=== PATIENT | male | born 1945 | race Caucasian/White ===

== ENCOUNTER → 2017-04-15 | Day surgery (SDC) | payer OTHER ==
--- NOTE | 2017-04-02 10:09 | Diagnostic Imaging Report ---
PROCEDURE:CHEST 2 VIEWS TECHNIQUE:PA and lateral chest INDICATION:Preoperative evaluation for hip hardware removal. COMPARISON:Patients [facility] [place], , CHEST 2 VIEWS, 11/07/2016, 8:49. FINDINGS: The right lung is mildly hyperinflated. Left lower lobe and lingular segmental atelectasis with interstitial thickening consistent with scar. Adjacent small left pleural effusion with or without accompanying pleural thickening. Left upper lobe is clear. Normal heart size and mediastinal contour. Intact skeleton. CONCLUSION: Left lower lobe volume loss with accompanying interstitial scar and small left pleural effusion or pleural thickening. Findings are similar to October 2016. Dictated by: Micah Conde M.D. on 04/02/2017 at 10:17 Electronically approved by: Micah Conde M.D. on 04/02/2017 at 10:17
[~2017-04-15] MED LIST: ALPRAZOLAM0.25 MG PO; AMARYL4 MG PO; BUPIVACAINE HCL 0.5% INJ 30 ML VIAL INJ ONE; CATAPRES0.3 MG TD; CEFAZOLIN SOD 2 GM/D5W 50ML 50 ML IV ONE; CLONIDINE HCL0.1 MG PO; CLONIDINE HCL0.3 MG PO; CRESTOR40 MG; FENTANYL CITRATE/PF 100MCG/2 ML INJ ONE; FINASTERIDE5 MG PO; FLAGYL250 MG PO; FUROSEMIDE40 MG PO; GABAPENTIN300 MG PO; GLUCOPHAGE XR750 MG; HYDRALAZINE HCL25 MG PO; LAMOTRIGINE150 MG PO; LASIX40 MG PO; LEVEMIR100 UNIT/1 SQ; LEVOTHYROXINE50 MCG PO; LIDOCAINE HCL 2% LOCAL INJ 5 ML SDV VIAL INJ ONE; LITE COAT ASPI325 MG PO; LITHOBID300 MG; METOLAZONE5 MG PO; METOPROLOL TART50 MG PO; METRONIDAZOLE500 MG PO; MINOXIDIL2.5 MG PO; NEXIUM40 MG PO; PLAVIX75 MG PO; PROPOFOL IV EMULSION 10 MG/ML 20 ML VIAL ONE; SEVOFLURANE INHAL SOLN 250 ML PEN BTL ONE; SODIUM CHLORIDE 0.9% 500ML 500 ML ONE; TAMSULOSIN HCL0.4 MG PO; TERAZOSIN HCL5 MG PO; VANCOCIN HCL250 MG PO
[2017-04-15 06:49] LABS: BASOPHILS % 0.6 % (0.0-1.0); EOSINOPHILS # (AUTO) 0.1 (0.0-0.4); EOSINOPHILS % 2.8 % (0.0-6.0); HEMATOCRIT 38.2 % (38.2-49.6); HEMOGLOBIN 12.3 g/dL (14.0-18.0); LYMPHOCYTES # (AUTO) 0.9 (1.0-3.2); LYMPHOCYTES % 18.1 % (18.0-39.1); MEAN CORPUSCULAR HEMOGLOBIN 31.9 pg (28-32); MEAN CORPUSCULAR HGB CONC 32.2 g/dL (31-35); MEAN CORPUSCULAR VOLUME 99.2 fL (81-99); MONOCYTES # (AUTO) 0.7 (0.2-0.8); MONOCYTES % 14.3 % (4.4-11.3); NEUTROPHILS % 63.8 % (38.7-80.0); PLATELET COUNT 142 x10e3/uL (140-360); RED BLOOD COUNT 3.85 x10e6/uL (4.3-5.7); RED CELL DISTRIBUTION WIDTH 14.8 % (11.7-14.4)
[2017-04-15 07:01] LABS: ANION GAP 14.1 mmol/L (8-16); CALCIUM 9.1 mg/dL (8.4-10.2); CREATININE, SERUM 4.39 mg/dL (0.72-1.25); POTASSIUM 4.1 mmol/L (3.5-5.1)
--- NOTE | 2017-04-16 08:40 | Operative Report ---
DATE OF PROCEDURE: April 15, 2017 PREOPERATIVE DIAGNOSIS: Symptomatic hardware, right hip. POSTOPERATIVE DIAGNOSIS: Symptomatic hardware, right hip. OPERATION/PROCEDURE PERFORMED: Patient underwent removal of the symptomatic hardware from the right hip. BAR HOST: None. ANESTHESIA: General endotracheal intubation anesthesia. IV FLUIDS: Per the anesthesia record. BRIEF DESCRIPTION OF OPERATIVE PROCEDURE: Mr. Myers was taken to the operating room and placed in the supine position on the operating table. Following induction of general anesthesia, as well as endotracheal intubation, the patient's right lower extremity was examined under anesthesia. He was found to have an incision on the lateral aspect of his hip. His right lower extremity was placed in a well-padded longitudinal traction, and the left lower extremity was placed in a well-padded lithotomy position. Fluoroscopic evaluation of the right hip joint demonstrated retained hardware from a previous percutaneous screw fixation of a femoral neck fracture. The patient experienced considerable compression during the healing phase. Each of the screws was protruding significantly from the lateral aspect of the femur. This had resulted in chronic persistent lateral hip discomfort during the patient's daily activities. The patient's thigh and leg were prepped and draped in a standard surgical fashion. An incision was created along the lateral aspect of the thigh through the previous surgical incision. This incision was carried through skin only. Blunt dissection was used to deepen the incision, and the screws were easily identified in the soft tissues adjacent to the lateral aspect of the femur. Each screw and washer were isolated and removed without difficulty. Under fluoroscopic evaluation, the patient's hip was placed through a range of motion, and the patient's head and neck moved in concert. There was no evidence of a nonunion. The patient's wound was copiously irrigated. The wound was closed in a multilayer fashion. Sterile dressings were applied. The patient was awakened and taken to the postanesthesia care unit in stable condition. Job#: [id number] AMPARO
== END | disposition home or self-care (01) ==
LOC: OR 05:24
PROVIDERS: ATTEND Specialist
DX: Z45.89 Encounter for adjustment and management of other implanted devices (principal); G47.33 Obstructive sleep apnea (adult) (pediatric); E11.22 Type 2 diabetes mellitus with diabetic chronic kidney disease; I12.0 Hypertensive chronic kidney disease with stage 5 chronic kidney disease or end stage renal disease; N18.6 End stage renal disease; I69.398 Other sequelae of cerebral infarction; R53.1 Weakness; K21.9 Gastro-esophageal reflux disease without esophagitis; Z01.810 Encounter for preprocedural cardiovascular examination; Z01.818 Encounter for other preprocedural examination; Z79.82 Long term (current) use of aspirin; Z99.2 Dependence on renal dialysis
CPT/HCPCS: 20680; 36415; 71046; 76001; 80048; 85025; 93005; J2001; J7040

== ENCOUNTER 2017-07-21 08:10 | Emergency (ER) | payer OTHER ==
[~2017-07-21] VITALS: Ht 172.7 cm; Wt 70.3 kg
[~2017-07-21 08:10] MED LIST changes: -BUPIVACAINE HCL 0.5% INJ 30 ML VIAL INJ ONE; -CEFAZOLIN SOD 2 GM/D5W 50ML 50 ML IV ONE; -FENTANYL CITRATE/PF 100MCG/2 ML INJ ONE; -LIDOCAINE HCL 2% LOCAL INJ 5 ML SDV VIAL INJ ONE; -PROPOFOL IV EMULSION 10 MG/ML 20 ML VIAL ONE; -SEVOFLURANE INHAL SOLN 250 ML PEN BTL ONE; -SODIUM CHLORIDE 0.9% 500ML 500 ML ONE
--- OUTSIDE RECORDS SUMMARY | 2017-07-21 08:14 | XMS REPORT ---
Author Author [facility] [place] Address Unknown Phone Unavailable Care Team Providers Care [employer]er Name Role Phone LUIS WRAY Unavailable Unavailable EDWIN AMBROCIO Unavailable Unavailable Problems This patient has no known problems. Allergies, Adverse Reactions, Alerts This patient has no known allergies or adverse reactions. Medications This patient has no known medications. Results Test Description Test Time Test Comments Text Results Atomic Results Result Comments CHEST 2 VIEWS [place] [address] Patient Name: NICKI DIXON MR #: [id number] : 1945 Age/Sex: 72/M Req # : [id number] Adm Physician: Ordered by: LUIS WRAY MD Report #: [id number] Location: OR Room/Bed: Procedure: [id number] DX/CHEST 2 VIEWS Exam Date: 04/02/17 Exam Time : 0940 REPORT STATUS: Signed PROCEDURE: CHEST 2 VIEWS TECHNIQUE: PA and lateral chest INDICATION: Preoperative evaluation for hip hardware removal. COMPARISON: [facility], , CHEST 2 VIEWS, 11/07/2016, 8:49. FINDINGS: The right lung is mildly hyperinflated. Left lower lobe and lingular segmental atelectasis with interstitial thickening consistent with scar. Adjacent small left pleural effusion with or without accompanying pleural thickening. Left upper lobe is clear. Normal heart size and mediastinal contour. Intact skeleton. CONCLUSION: Left lower lobe volume loss with accompanying interstitial scar and small left pleural effusion or pleural thickening. Findings are similar to October 2016. Dictated by: Claudine Conde M.D. on 04/02/2017 at 10:17 Electronically approved by: Claudine Conde M.D. on 04/02/2017 at 10:17 Dictated By: CLAUDINE CONDE MD [id number] Transcribed By: TROY on 04/02/17 1017 COPY TO: LUIS WRAY MD CHEST SINGLE (PORTABLE) [place] [address] Patient Name: NICKI DIXON MR #: [id number] : 1945 Age/Sex: 71/M Req #: [id number] Adm Physician: Ordered by: EDWIN AMBROCIO MD Report #: [id number] Location: ER Room/Bed: Procedure: [id number] DX/CHEST SINGLE (PORTABLE) Exam Date: 11/17/16 Exam Time: 1030 REPORT STATUS: Signed PROCEDURE: A single AP view of the chest. COMPARISON: [facility], DX, CHEST 2 VIEWS, 11/07/2016, 8:49. INDICATIONS: DIALYSIS PATIENT FINDINGS: See impression. IMPRESSION: 1. central pulmonary venous congestion, bilateral interstitial edema, bilateral pleural effusions and associated compressive atelectasis. Findings likely represent fluid overload. 2. Mild prominence of the cardiac silhouette. 3. No acute bony abnormalities. 4. Preliminary report provided by Dr. Simmons November 17, 2016 at 1118 hour Caitlin Simmons M.D. Dictated by: Caitlin Simmons M.D. on 11/19/2016 at 15:55 Electronically approved by: Caitlin Simmons M.D. on 11/19/2016 at 15:55 Dictated By: CAITLIN SIMMONS MD 54 Transcribed By: TROY on 11/19/161554 COPY TO: EDWIN AMBROCIO MD CHEST 2 VIEWS [place] [address] Patient Name: NICKI DIXON MR #: [id number] : 1945 Age/Sex: 71/M Req # : [id number] Adm Physician: Ordered by: LUIS WRAY MD Report #: [id number] Location: OR Room/Bed: Procedure: [id number] DX/CHEST 2 VIEWS Exam Date: 11/07/16 Exam Time : 0845 REPORT STATUS: Signed PROCEDURE: X-RAY CHEST, TWO VIEWS COMPARISON: [facility], DX, CHEST SINGLE (NOT PORTABLE), 2015, 10:08. INDICATIONS: PREOPERATIVE CHEST XRAY FOR RIGHT KNEE SCOPE FINDINGS: LUNGS: No consolidations or edema. Chronic changes in the left lung base. PLEURA: Small left pleural effusion versus scarring. HEART T MEDIASTINUM: The heart is within normal size- limits. BONES T SOFT TISSUES: No acute findings. CONCLUSION : No acute thoracic abnormality. Edinson Meeks D.O. Dictated by: Edinson Meeks D.O. on 11/07/2016 at 9:45 Electronically approved by: Edinson Meeks D.O. on 11/07/2016 at 9:45 Dictated By: EDINSON MEEKS DO 4 COPY TO: LUIS WRAY MD
[2017-07-21] MEDS ORDERED: MINOXIDIL 2.5 MG TAB PO ONE (08:45)
[2017-07-21 09:30] LABS: BASOPHILS % 0.5 % (0.0-1.0); EOSINOPHILS # (AUTO) 0.1 (0.0-0.4); EOSINOPHILS % 1.8 % (0.0-6.0); HEMATOCRIT 39.6 % (38.2-49.6); HEMOGLOBIN 13.2 g/dL (14.0-18.0); LYMPHOCYTES # (AUTO) 0.9 (1.0-3.2); LYMPHOCYTES % 15.6 % (18.0-39.1); MEAN CORPUSCULAR HEMOGLOBIN 32.1 pg (28-32); MEAN CORPUSCULAR HGB CONC 33.3 g/dL (31-35); MEAN CORPUSCULAR VOLUME 96.4 fL (81-99); MONOCYTES # (AUTO) 0.6 (0.2-0.8); NEUTROPHILS # (AUTO) 3.9 (2.1-6.9); NEUTROPHILS % 71.6 % (38.7-80.0); PLATELET COUNT 140 x10e3/uL (140-360); RED BLOOD COUNT 4.11 x10e6/uL (4.3-5.7); RED CELL DISTRIBUTION WIDTH 13.2 % (11.7-14.4)
[2017-07-21 09:34] LABS: CALCIUM IONIZED 1.1 mmol/L (1.09-1.30)
[2017-07-21 09:46] LABS: ALBUMIN 3.8 g/dL (3.5-5.0); ALBUMIN/GLOBULIN RATIO 0.8 (0.8-2.0); ANION GAP 18.9 mmol/L (8-16); CALCIUM 9.8 mg/dL (8.4-10.2); CREATININE, SERUM 6.14 mg/dL (0.72-1.25); MAGNESIUM 2.2 MG/DL (1.3-2.1); PHOSPHORUS 5.3 MG/DL (2.3-4.7)
[2017-07-21 09:48] LABS: POTASSIUM 5.9 mmol/L (3.5-5.1)
[2017-07-21] MEDS ORDERED: SODIUM BICARBONATE 8.4% 50 ML VIAL IV STA (10:39)
[2017-07-21] MEDS ORDERED: SOD POLYSTYRENE SULFONATE SUSP 15 GM/60 ML BTL PO ONE (10:45)
[2017-07-21] MEDS ORDERED: CALCIUM GLUCONATE 10% INJ 9.3 MEQ in SODIUM CHLORIDE 0.9% 100 ML 100 ML IV ONE (10:45)
[2017-07-21] MEDS ORDERED: SODIUM CHLORIDE 0.9% 500ML 500 ML IV ONE (10:45)
[2017-07-21] MEDS ORDERED: CALCIUM GLUCONATE 10% INJ 0.465 MEQ/ML VIAL ONE (10:58)
[2017-07-21] MEDS ORDERED: SODIUM BICARBONATE 8.4% INJ 50 ML SYR IV NR (11:00)
--- NOTE | 2017-07-21 12:44 | Diagnostic Imaging Report ---
PROCEDURE:CHEST 2 VIEWS TECHNIQUE:PA and lateral chest INDICATION:Muscle cramping COMPARISON:Patients [facility], , CHEST 2 VIEWS, 04/02/2017, 9:51. FINDINGS: The right lung is mildly hyperinflated. Left lower lobe and lingular segmental atelectasis with interstitial thickening consistent with scar. Adjacent small left pleural effusion with or without accompanying pleural thickening. Left upper lobe is clear. Normal heart size and mediastinal contour. Intact skeleton. CONCLUSION: Left lower lobe volume loss with accompanying interstitial scar and small left pleural effusion or pleural thickening. Findings are unchanged from March 2017. Dictated by: Micah Conde M.D. on 07/21/2017 at 12:46 Electronically approved by: Micah Conde M.D. on 07/21/2017 at 12:46
[2017-07-21 14:17] VITALS: BP 157/74
[2017-07-21] MEDS ORDERED: CALCIUM ACETATE 667 MG GELCAP PO ONE (15:00)
== END 2017-07-21 14:32 | disposition home or self-care (01) ==
LOC: ER 08:10
DX: I12.0 Hypertensive chronic kidney disease with stage 5 chronic kidney disease or end stage renal disease (principal); R53.1 Weakness; M79.1 Myalgia; N18.6 End stage renal disease; Z99.2 Dependence on renal dialysis
CPT/HCPCS: 36415; 71046; 80053; 82330; 83735; 84100; 85025; 99284; J0610; J7040

== ENCOUNTER 2017-10-29 15:24 | Inpatient (IN) | payer OTHER ==
[~2017-10-29] VITALS: Ht 172.7 cm; Wt 83.5 kg
[2017-10-29] MEDS ORDERED: ONDANSETRON HCL INJ 2 MG/ML VIAL IM STA (15:32)
[2017-10-29] MEDS ORDERED: RENVELA800 MG PO (15:52)
[2017-10-29] MEDS ORDERED: ASPIR 8181 MG PO (15:52)
[2017-10-29 15:55] LABS: BASOPHILS # (AUTO) 0.1 (0.0-0.1); BASOPHILS % 0.6 % (0.0-1.0); EOSINOPHILS # (AUTO) 0.1 (0.0-0.4); EOSINOPHILS % 1.4 % (0.0-6.0); HEMATOCRIT 39.4 % (38.2-49.6); HEMOGLOBIN 13.3 g/dL (14.0-18.0); LYMPHOCYTES # (AUTO) 0.9 (1.0-3.2); LYMPHOCYTES % 10.3 % (18.0-39.1); MEAN CORPUSCULAR HEMOGLOBIN 33.3 pg (28-32); MEAN CORPUSCULAR HGB CONC 33.8 g/dL (31-35); MEAN CORPUSCULAR VOLUME 98.7 fL (81-99); MONOCYTES # (AUTO) 0.6 (0.2-0.8); MONOCYTES % 7.3 % (4.4-11.3); NEUTROPHILS # (AUTO) 6.8 (2.1-6.9); NEUTROPHILS % 78.7 % (38.7-80.0); PLATELET COUNT 175 x10e3/uL (140-360); RED BLOOD COUNT 3.99 x10e6/uL (4.3-5.7); RED CELL DISTRIBUTION WIDTH 13.2 % (11.7-14.4)
[2017-10-29 15:59] LABS: INR 0.95; PARTIAL THROMBOPLASTIN TIME 25.9 seconds (23.8-35.5); PROTHROMBIN TIME 11.9 seconds (11.9-14.5)
[2017-10-29] MEDS: HYDROMORPHONE 1MG/1ML INJ IV PRN ×2 (16:03→22:25)
[2017-10-29 16:08] LABS: ALBUMIN 4.2 g/dL (3.5-5.0); ANION GAP 20.4 mmol/L (8-16); CALCIUM 9.7 mg/dL (8.4-10.2); CREATININE, SERUM 5.7 mg/dL (0.72-1.25); POTASSIUM 4.4 mmol/L (3.5-5.1)
--- NOTE | 2017-10-29 16:28 | Diagnostic Imaging Report ---
PROCEDURE: A single AP view of the chest. COMPARISON: [facility], DX, CHEST 2 VIEWS, 07/21/2017, 13:27. INDICATIONS: PREOP FOR BROKEN RIGHT HIP FINDINGS: Lines/tubes: None. Lungs: The lungs are well inflated. Linear and patchy opacities in the left lower lung consistent with scarring and pleural thickening are relatively stable since the prior exam. Associated compressive atelectasis. Pleura: Probable small left pleural effusion. Heart and mediastinum: Cardiac silhouette is unremarkable. Pulmonary vasculature is normal. Bones: No acute bony abnormality. IMPRESSION: 1. stable findings in the left lower lung likely related to scarring and pleural thickening. Small pleural effusion and likely associated compressive atelectasis. Flavio Simmons M.D. Dictated by: Flavio Simmons M.D. on 10/29/2017 at 16:33 Electronically approved by: Flavio Simmons M.D. on 10/29/2017 at 16:33
[2017-10-29] MEDS ORDERED: DEXTROSE 50% SYRINGE 50 ML IV PRN (17:15)
[2017-10-29] MEDS ORDERED: HYDROMORPHONE 1MG/1ML INJ IV STA (17:17)
--- NOTE | 2017-10-29 18:16 | Consultation ---
DATE OF CONSULTATION: October 29, 2017 HISTORY OF PRESENT ILLNESS: This is a 72-year-old white gentleman, well known to me, who was recently admitted at [facility] with severe pain involving the right outer aspect of the legs, particularly thigh are, very tender to touch. Initial impression was probable entrapment of lateral cutaneous nerve. He had already seen orthopedics earlier before coming to the hospital, This time he has been sent by Dr. Carrillo for fracture of his hip and possibility of surgery and hip replacement. He is currently awake, alert and lying supine in no apparent distress. He is on Thursday, Thursday and Thursday dialysis schedule. His labs show white count 8.6. Hemoglobin 13.3. Potassium 4.4. Creatinine 5.7. BNP 730. SOCIAL HISTORY: Patient does not smoke or drink. FAMILY HISTORY: Significant for hypertension. ALLERGIES: LOSARTAN. Workup here included chest x-ray shows stable findings of the left lower lung field related to scarring and pleural thickening. CURRENT MEDICATIONS: His home medications have been started as far as Xanax 0.25 mg p.o. t.i.d., gabapentin 300 mg at bedtime, insulin sliding scale, Lamictal 300 mg at bedtime, levothyroxine 50 mcg daily, minoxidil 5 mg p.o. b.i.d., Zofran p.r.n. FAMILY HISTORY: Hypertension. PAST MEDICAL HISTORY: Significant for type 2 diabetes, hypothyroidism, end-stage renal disease, recent open reduction and internal fixation of right hip, history of meniscal knee surgery, history of peripheral neuropathy, anemia, chronic kidney disease, secondary hyperparathyroidism. PHYSICAL EXAMINATION: GENERAL: Awake, alert, lying supine in no apparent distress. VITALS: Blood pressure 180/72, pulse rate 68. Afebrile. HEAD AND NECK: Cornea clear and mucosa dry. Neck veins flat. LUNGS: Relatively clear. HEART: S1 and S2 audible. ABDOMEN: Soft and nontender. LOWER EXTREMITIES: No edema. IMPRESSION AND PLAN: Current volume status appears stable. Underlying end-stage renal disease. Surgery plans per the patient. Underlying hypertension, anxiety, depression, peripheral neuropathy. Will arrange for dialysis. See orders. Job#: [id number]
--- NOTE | 2017-10-29 18:24 | Diagnostic Imaging Report ---
EXAM: MRI of right hip without contrast TECHNIQUE: Magnetic resonance imaging of the RIGHT HIP was performed WITHOUT injected contrast. HISTORY: Right hip pain. Fracture. COMPARISON: None available. FINDINGS: BONES: Acute impaction subcapital fracture of the right femoral neck, with mild superior displacement of the distal fracture fragment. There is linear T2 hypointense signal surrounding the patchy T2 hyperintense signal in the femoral head, consistent with fracture extension. Small volume of fluid surrounding the anterior aspect of the fracture site. JOINT: Degenerative osteoporosis of the hip joint bilaterally. Joint Fluid: The amount of fluid within the joint is within physiologic limits. SOFT TISSUES: Mild muscle edema in the anterior right hip secondary to fracture. IMPRESSION: 1. Acute impaction subcapital fracture of the right femoral neck, with mild superior displacement of the distal fracture fragment. Signed by: Dr. Karoline Kelly M.D. on 10/29/2017 6:21 PM
[2017-10-29] MEDS ORDERED: ALPRAZOLAM 0.25 MG TAB PO SCH (21:00)
[2017-10-29] MEDS ORDERED: NON-FORMULARY MEDICATION (Lamotrigine 300 MG) PO SCH (21:00)
[2017-10-29] MEDS: INSULIN REGULAR, HUMAN 100 UNIT/1 ML 3ML VIAL SQ SCH (22:19)
[2017-10-29] MEDS: MINOXIDIL 2.5 MG TAB PO SCH (22:33)
[2017-10-29] MEDS: GABAPENTIN 300 MG CAP PO SCH (22:34)
[2017-10-29] MEDS: LAMOTRIGINE 100 MG TAB PO SCH (22:34)
[2017-10-30] VITALS (8 sets, daily range): BP systolic 141–189; BP diastolic 65–84
[2017-10-30] MEDS: HYDROCODONE/APAP 10MG-325MG TAB PO PRN ×2 (01:15→12:41)
[2017-10-30] MEDS: HYDROMORPHONE 1MG/1ML INJ IV PRN ×5 (03:41→19:12)
[2017-10-30] MEDS: LEVOTHYROXINE SODIUM 50 MCG TAB PO SCH (06:45)
[2017-10-30] MEDS: INSULIN REGULAR, HUMAN 100 UNIT/1 ML 3ML VIAL SQ SCH ×4 (07:30→20:00)
[2017-10-30] MEDS ORDERED: HYDRALAZINE HCL 25 MG TAB PO PRN (08:15)
--- NOTE | 2017-10-30 08:56 | Consultation ---
DATE OF CONSULTATION: October 30, 2017 CARDIOLOGY CONSULTATION REASON FOR CONSULTATION: Cardiac clearance. HPI: This is a 72-year-old male that presented with right hip pain. According to the patient, he had recent right hip surgery and was still having the pain. He stated that he was admitted at [facility] for 3 days and was sent home without any intervention. He stated the pain continued and that he decided to come over here for re-evaluation. He denied any chest pain, any dizziness, any palpitation, any shortness of breath, or diaphoresis. PAST MEDICAL HISTORY: Hypertension, CVA, end-stage renal disease, on dialysis, diabetes, CVA, NSTEMI, PVD, hypothyroidism, anemia, bradycardia, and right hip fracture. PAST SURGICAL HISTORY: Left hand graft, AV graft, left shoulder surgery, and right hip surgery. FAMILY HISTORY: Noncontributory. SOCIAL HISTORY: No smoking. No drinking. MEDICATIONS: See med list. ALLERGIES: HE IS ALLERGIC TO LOSARTAN. REVIEW OF SYSTEMS: Negative except those mentioned above. PHYSICAL EXAMINATION VITAL SIGNS: Temperature 97, heart rate 75, blood pressure 160/69, respirations 18, oxygen saturation 96% on room air. GENERAL: He is awake, alert and oriented times 3. HEENT: Mucous membrane moist. NECK: Supple. LUNGS: Bilateral clear to auscultation. CARDIOVASCULAR: S1 and S2 present. ABDOMEN: Soft. NEUROLOGICAL: Intact. EXTREMITIES: With no edema. He had the right leg in traction. LABS: Sodium 138, potassium 4.4, chloride 94, CO2 28, BUN 39, creatinine 5.7, glucose 223. White blood cell 8.6, hemoglobin 13.3, hematocrit 39.4, and platelets 175,000. PT 11.9, PTT 25.9 and INR 0.95. IMPRESSION 1. Right hip pain. 2. Hypertension. 3. End-stage renal disease, on dialysis. 4. Diabetes. 5. Hypothyroidism. 6. Anemia of chronic disease. ASSESSMENT AND PLAN: Will go ahead and get an echocardiogram to assess the LV and the valve function. He is planned to receive dialysis today. Further cardiac workup pending clinical course. Thank you for this consultation. DICTATED BY LATONIA GONG NP Job#: [id number]
[2017-10-30] MEDS: SENNOSIDES 8.6 MG TAB PO SCH ×2 (09:00→17:00)
--- NOTE | 2017-10-30 09:14 | History and Physical ---
CHIEF COMPLAINT: Persistent right-sided lower extremity pain. HISTORY OF PRESENT ILLNESS: The patient is a very pleasant 72-year-old male with a history of end-stage renal disease, on dialysis. The patient was recently admitted to [facility] with pain of the right lower extremity. The patient's pain was quite tender especially to the thigh area. It was the impression that the patient may have some sort of a nerve problem, sciatica, or muscular strain. The patient had extensive workup including a lumbosacral spine MRI and subsequent CT scan of the right lower extremity. Prior to that, the patient was seen by Dr. Carrillo for the pain. The patient stated that there was no hip problems at this time. Pain most likely nerve problem. The patient was supposed to see Dr. Vince Morgan for the lower back problem, but apparently he was in a lot of pain. Therefore, he was admitted to [facility] for treatment. There, the patient stayed for a few days. He had workup including chronic hip problem on the CT scan. The patient came to see Dr. Rosa with persistent pain to the right lower extremity particularly the right thigh where it is very tender to touch, persistent. The CT scan may have shown chronic but possible acute stress fractures. Patient is admitted for further evaluation. Discussed with Dr. Carrillo for possible surgical intervention such as right hip replacement. PAST MEDICAL HISTORY 1. End-stage renal disease, on dialysis. 2. Hypertension. 3. Hypothyroidism. 4. History of a meniscal knee surgery. 5. Peripheral neuropathy. 6. Chronic anemia. 7. Secondary hyperparathyroidism. 8. History of right hip repair with subsequent pin and screw removal. SOCIAL HISTORY: Patient lives with his . They are a supportive family. ALLERGIES: LOSARTAN. HOME MEDICATIONS: List reviewed. REVIEW OF SYSTEMS: Right-sided lower extremity pain. PHYSICAL EXAMINATION VITAL SIGNS: Temperature is 98, blood pressure 160/90, pulse rate 76, and respirations 18. GENERAL: The patient is not in acute distress. He is awake. He is in pain however. HEENT: Normocephalic, atraumatic, and anicteric. NECK: Supple grossly. PULMONARY: Diminished breath sounds. CARDIOVASCULAR: Regular rate and rhythm. ABDOMEN: Soft. Positive bowel sounds. Nontender, no distention. EXTREMITIES: No gross cyanosis or edema. NEUROLOGIC: There is no gross focal deficit other than right lower extremity radiating pain. MRI showed acute impaction of the subcapital fractures of the right femoral neck with mild superior displacement of the distal fracture fragment. LABORATORY: WBC is 8.6, hemoglobin 13.3, hematocrit 39.4, and platelets are 175,000. Chemistries: Sodium 138, potassium 4.4, chloride 94, bicarb is 20, BUN is 39, creatinine 5.7, and glucose is 223. IMPRESSIONS 1. Acute impaction subcapital fracture of the right femoral neck with mild superior displacement of the distal fracture fragment. 2. End-stage renal disease, on dialysis. 3. Multiple chronic baseline problems including hypertension and diabetes. PLAN: Surgical intervention of the right hip. Patient will most likely need right hip replacement and a cardiac clearance with echocardiogram. Continue with dialysis. Insulin sliding scale coverage. Home medications. Job#: [id number]
[2017-10-30] MEDS: MINOXIDIL 2.5 MG TAB PO SCH ×2 (09:15→17:00)
[2017-10-30] MEDS: PANTOPRAZOLE SOD 40 MG TABEC PO SCH (09:15)
[2017-10-30] MEDS ORDERED: ALPRAZOLAM 0.25 MG TAB PO PRN (10:00)
[2017-10-30 10:27] LABS: ALBUMIN 3.2 g/dL (3.5-5.0); ANION GAP 18.8 mmol/L (8-16); CALCIUM 8.7 mg/dL (8.4-10.2); CREATININE, SERUM 6.95 mg/dL (0.72-1.25); POTASSIUM 4.8 mmol/L (3.5-5.1)
[2017-10-30] MEDS ORDERED: METOPROLOL TART25 MG PO (10:36)
--- NOTE | 2017-10-30 14:27 | Progress Note ---
DATE: October 30, 2017 I am covering for Dr. Freedman. SUBJECTIVE: Patient is scheduled for a right ORIF tomorrow by orthopedics. The patient is doing well overnight with no complaints. His vital signs are stable. The patient is tolerating diet well. 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 OBJECTIVE VITAL SIGNS: Temperature 96.8, pulse 71, respiratory rate 16, blood pressure 141/65. He has 92% O2 sat on room air. LAB FINDINGS: White count 8.6, hemoglobin 13.3, hematocrit 39, platelets 175. Coagulation: PT 11.9, INR 0.95, PTT 25.9. Chemistry: Sodium 139, potassium 4.8, chloride 98, bicarb 28, anion gap 18, BUN 15, creatinine 6.9, glucose 108, albumin 3.1. MICROBIOLOGY: None. IMAGING STUDIES: Hip MRI shows acute impaction subcapital fracture of the right femoral neck with mild superior displacement of the distal fracture fragment. Chest x-ray shows stable findings in the left lower lung likely related to scarring and pleural thickening. PHYSICAL EXAMINATION GENERAL: Not in acute distress, alert and oriented x3, cooperative on exam. HEENT: Head is normocephalic and atraumatic. Eyes: Pupils are equal, round and reactive to light bilaterally. Extraocular movements intact bilaterally. NECK: Supple with good range of motion. THROAT: No evidence of any erythema or exudates in the posterior pharynx. Has poor dentition. PULMONARY: Clear to auscultation bilaterally. No wheezing, no rales, no rhonchi, no crackles appreciated. CARDIOVASCULAR: Positive S1, S2. No murmurs, rubs, or gallops. ABDOMEN: Soft, nondistended. Tender to palpation. Bowel sounds present. MUSCULOSKELETAL: Strength is 5/5 throughout. No evidence of any musculoskeletal deficit on examination. No weakness appreciated. NEUROLOGICAL: Cranial nerves II through XII grossly intact. No evidence of any neurological deficits on exam. SKIN: Intact. Warm to touch. Good capillary refill. PSYCHIATRIC: Normal affect and mood. EXTREMITIES: No edema. Good range of motion throughout. IMPRESSION 1. Acute impaction subcapital fracture of the right femoral neck with superior displacement. 2. End-stage renal disease on hemodialysis. 3. Hypertension. 4. Diabetes. PLAN: At this time, the patient is scheduled for right ORIF tomorrow by orthopedics. He will receive hemodialysis later today by nephrology. We are going to resume his antihypertensive medications as well as insulin sliding scale. He is currently afebrile, and vital signs are stable. Job#: [id number]
[2017-10-30] MEDS ORDERED: FENTANYL CITRATE/PF 100MCG/2 ML INJ ONE (15:17)
[2017-10-30] MEDS: SEVELAMER CARBONATE 800 MG TAB PO SCH (17:51)
[2017-10-30] MEDS ORDERED: SODIUM CHLORIDE 0.9% 1000ML 1,000 ML ONE (17:53)
[2017-10-30] MEDS: GABAPENTIN 300 MG CAP PO SCH (20:24)
[2017-10-30] MEDS: LAMOTRIGINE 100 MG TAB PO SCH (20:24)
[2017-10-31] VITALS: BP 136/65
[2017-10-31] MEDS: HYDROMORPHONE 1MG/1ML INJ IV PRN (03:44)
[2017-10-31 04:00] VITALS: BP 171/81
[2017-10-31] MEDS: LEVOTHYROXINE SODIUM 50 MCG TAB PO SCH (05:50)
[2017-10-31] MEDS ORDERED: CEFAZOLIN SOD 2 GM/D5W 50ML 50 ML IV SCH (06:00)
[2017-10-31] MEDS ORDERED: CEFAZOLIN SOD 2 GM in WATER STERILE 10ML VIAL 10 ML IV ONE (06:00)
[2017-10-31 06:35] LABS: BASOPHILS % 0.3 % (0.0-1.0); EOSINOPHILS # (AUTO) 0.2 (0.0-0.4); EOSINOPHILS % 2.7 % (0.0-6.0); HEMATOCRIT 34.6 % (38.2-49.6); HEMOGLOBIN 11.7 g/dL (14.0-18.0); LYMPHOCYTES # (AUTO) 0.9 (1.0-3.2); LYMPHOCYTES % 10.9 % (18.0-39.1); MEAN CORPUSCULAR HGB CONC 33.8 g/dL (31-35); MEAN CORPUSCULAR VOLUME 97.5 fL (81-99); MONOCYTES # (AUTO) 0.8 (0.2-0.8); NEUTROPHILS # (AUTO) 5.9 (2.1-6.9); NEUTROPHILS % 74.6 % (38.7-80.0); PLATELET COUNT 142 x10e3/uL (140-360); RED BLOOD COUNT 3.55 x10e6/uL (4.3-5.7); RED CELL DISTRIBUTION WIDTH 13.1 % (11.7-14.4)
[2017-10-31 06:41] LABS: INR 1.03; PROTHROMBIN TIME 12.7 seconds (11.9-14.5)
[2017-10-31 06:42] LABS: PARTIAL THROMBOPLASTIN TIME 28.6 seconds (23.8-35.5)
[2017-10-31 06:52] LABS: ALBUMIN 3.3 g/dL (3.5-5.0); ANION GAP 16.5 mmol/L (8-16); CALCIUM 9.1 mg/dL (8.4-10.2); CREATININE, SERUM 4.59 mg/dL (0.72-1.25); POTASSIUM 5.5 mmol/L (3.5-5.1)
[2017-10-31] MEDS: INSULIN REGULAR, HUMAN 100 UNIT/1 ML 3ML VIAL SQ SCH ×4 (07:30→21:00)
[2017-10-31] MEDS: PANTOPRAZOLE SOD 40 MG TABEC PO SCH (07:30)
[2017-10-31] MEDS ORDERED: BACITRACIN 50,000 UNIT VIAL ONE (07:32)
[2017-10-31] MEDS ORDERED: MUPIROCIN 2% OINT 22 GM TUBE ONE (07:32)
[2017-10-31 08:00] VITALS: BP 171/81
[2017-10-31] MEDS: SEVELAMER CARBONATE 800 MG TAB PO SCH ×3 (08:00→18:13)
[2017-10-31] MEDS: SENNOSIDES 8.6 MG TAB PO SCH ×2 (08:32→18:13)
[2017-10-31] MEDS: MINOXIDIL 2.5 MG TAB PO SCH ×2 (08:32→18:13)
--- NOTE | 2017-10-31 10:46 | Diagnostic Imaging Report ---
Right hip 1 - view HISTORY: Right hip surgery. COMPARISON: Correlation with MRI dated 10/29/17. FINDINGS: Single intraoperative film demonstrates status post total right hip replacement with the prosthesis in adequate position. Soft tissue gas. Overlying artifact in the pelvis. Mild degenerative osteoarthrosis of the left hip. IMPRESSION: Right hip prosthesis in adequate position. Signed by: Dr. Karoline Kelly M.D. on 10/31/2017 10:42 AM
[2017-10-31] MEDS ORDERED: HYDROMORPHONE 0.2MG/ML-SOD CHL 30ML PCA SYRINGE IV PRN (11:00)
[2017-10-31] MEDS ORDERED: NALOXONE HCL INJ 0.4 MG/ML AMP IV PRN (11:00)
[2017-10-31] MEDS ORDERED: FENTANYL CITRATE/PF 100MCG/2 ML INJ ONE (11:40)
[2017-10-31] MEDS ORDERED: HYDROMORPHONE 0.2MG/ML-SOD CHL 30ML PCA SYRINGE IV ONE (12:10)
--- NOTE | 2017-10-31 12:12 | Diagnostic Imaging Report ---
Right hip 2 views HISTORY: Postoperative evaluation. Right hip replacement. COMPARISON: Intraoperative film performed earlier on the same day. FINDINGS: Status post total right hip arthroplasty with persistent adequate position. Surgical skin patience. Mild postoperative soft tissue gas. Mild degenerative osteoarthrosis of the left hip. IMPRESSION: Status post total right hip arthroplasty with prosthesis in adequate position. Signed by: Dr. Karoline Kelly M.D. on 10/31/2017 12:09 PM
[2017-10-31 13:00] VITALS: BP 134/52
[2017-10-31] MEDS: CEFAZOLIN SOD 1 GM/D5W 50ML 50 ML IV SCH ×2 (14:14→22:00)
[2017-10-31] MEDS ORDERED: ONDANSETRON HCL INJ 2 MG/ML VIAL ONE (14:51)
[2017-10-31] MEDS ORDERED: EPHEDRINE SULFATE INJ 50 MG/10 ML SYR ONE (14:51)
[2017-10-31] MEDS ORDERED: LIDOCAINE HCL 2% LOCAL INJ 5 ML SDV VIAL INJ ONE (14:51)
[2017-10-31] MEDS ORDERED: DEXAMETHASONE SOD PHOS INJ 4 MG/ML VIAL ONE (14:51)
[2017-10-31] MEDS ORDERED: SEVOFLURANE INHAL SOLN 250 ML PEN BTL ONE (14:51)
[2017-10-31] MEDS ORDERED: PROPOFOL IV EMULSION 10 MG/ML 20 ML VIAL ONE (14:51)
[2017-10-31] MEDS ORDERED: ROCURONIUM BROMIDE 10 MG/ML 5ML VIAL ONE (14:51)
[2017-10-31 15:33] VITALS: BP 158/70
[2017-10-31] MEDS ORDERED: SODIUM CHLORIDE 0.9% 1000ML 1,000 ML ONE (16:05)
[2017-10-31 20:00] VITALS: BP 140/62
--- NOTE | 2017-10-31 20:05 | Operative Report ---
DATE OF PROCEDURE: October 31, 2017 PREOPERATIVE DIAGNOSIS: Displaced right femoral neck fracture. POSTOPERATIVE DIAGNOSIS: Displaced right femoral neck fracture. OPERATION/PROCEDURE PERFORMED: Patient underwent a right cemented hemiarthroplasty. SAFETY PROFESSIONAL: None ANESTHESIA: General endotracheal intubation anesthesia. IV FLUIDS: See anesthesia record. BRIEF DESCRIPTION OF OPERATIVE PROCEDURE: Mr. Myers was taken to the operating room and placed in the supine position on operating table. Following induction of general anesthesia, as well as endotracheal intubation, the patient was turned to a lateral position with the right side up. He was held in place with hip positioners and an axillary roll was placed in the left chest wall. His thigh and flank were prepped and draped in standard surgical fashion. Standard posterolateral approach of the hip was undertaken. An incision was created along the lateral aspect of the hip. This incision was then deepened to the level of tensor fascia cheryl and gluteus an fascia. This tissue was then divided in line with the skin incision. The soft tissues were mobilized and the Charnley retractor was used to retract the soft tissues. The sciatic nerve was identified and protected throughout the remainder of the case. The short external rotators were divided from the posterolateral aspect of the femur and reflected posteriorly over the nerve. This revealed a displaced femoral neck fracture. A femoral neck cut was performed. The head was removed from the acetabulum. Sequential broaching was then undertaken until an appropriate sized broach was placed in the proximal femur. A trial neck and head were affixed to the broach and the hip was reduced and placed through motion and found to be stable. Intraoperative x-rays confirmed reestablishment of the limb length and an appropriate sized broach placement. The trial components were removed and cement was mixed on the back table. The canal was prepared for cementation. Cement was then injected under pressure and then pressurized. The stem was inserted, taking care to provide the patient an appropriate amount of anteversion. Once the cement had cured, the head was affixed to the stem and then, the hip was reduced. Then, the wound was appropriately irrigated. The hip was placed in range of motion, found to be stable. The soft tissues were closed in a multilayer fashion. Sterile dressings were applied and the patient was also provided an abduction pillow, awakened and taken to the postanesthesia care unit in stable condition. Job#: [id number] CQ
--- NOTE | 2017-10-31 20:22 | Progress Note ---
DATE: I am covering for Dr. Freedman. SUBJECTIVE: The patient is doing well. Status post right femur ORIF earlier this morning. He is still on a STUDENT LIFE ADVISOR pump. He is receiving hemodialysis. No other complaints at this time. OBJECTIVE VITAL SIGNS: Afebrile, temperature 99.4, pulse 76, respiratory rate 16, blood pressure 158/70, and he is on 100% on 2 L nasal cannula. GENERAL: Not in acute distress. Alert and oriented times 3. Cooperative on examination. HEENT: Head is normocephalic and atraumatic. Eyes: Pupils equal, round and reactive to light bilaterally. Extraocular movements intact bilaterally. NECK: Supple. . PULMONARY: Clear to auscultation bilaterally. No wheezing. No rales. No rhonchi appreciated. CARDIOVASCULAR: Positive S1 and S2. No murmurs, rubs or gallops appreciated. ABDOMEN: . . . LAB FINDINGS: Show a white count of 7.8, hemoglobin 9.7, hematocrit 35, and platelets of 242,000. Coagulation is normal. Chemistry: Sodium 138, potassium 5.5, chloride 99, bicarb 28, anion gap of 16, BUN is 27, creatinine is 4.5, glucose is 130. MICROBIOLOGY: None. IMAGING STUDIES: None. IMPRESSION 1. Acute . 2. Fracture status of right femoral neck open reduction internal fixation: Followed by orthopedics. 3. End-stage renal disease, on hemodialysis. 4. Hypertension. 5. Type 2 diabetes. 6. Hyperkalemia. PLAN: At this time, the patient is status post postop day #2 of right femur ORIF. He is on pain control. PT and OT eval. Will likely need half-way facility placement. We are going to get a.m. labs. The patient is receiving dialysis as we speak. . Job#: [id number] AMPARO
[2017-10-31] MEDS: LAMOTRIGINE 100 MG TAB PO SCH (21:00)
[2017-10-31] MEDS: GABAPENTIN 300 MG CAP PO SCH (21:00)
[2017-11-01] VITALS (8 sets, daily range): BP systolic 122–162; BP diastolic 60–67
[2017-11-01 05:33] LABS: BASOPHILS % 0.4 % (0.0-1.0); EOSINOPHILS # (AUTO) 0.2 (0.0-0.4); EOSINOPHILS % 2.5 % (0.0-6.0); HEMATOCRIT 27.3 % (38.2-49.6); LYMPHOCYTES # (AUTO) 0.7 (1.0-3.2); LYMPHOCYTES % 10.8 % (18.0-39.1); MEAN CORPUSCULAR HEMOGLOBIN 32.7 pg (28-32); MEAN CORPUSCULAR VOLUME 99.3 fL (81-99); MONOCYTES # (AUTO) 0.8 (0.2-0.8); MONOCYTES % 11.4 % (4.4-11.3); NEUTROPHILS % 73.9 % (38.7-80.0); PLATELET COUNT 110 x10e3/uL (140-360); RED BLOOD COUNT 2.75 x10e6/uL (4.3-5.7)
[2017-11-01] MEDS: LEVOTHYROXINE SODIUM 50 MCG TAB PO SCH (05:40)
[2017-11-01] MEDS: CEFAZOLIN SOD 1 GM/D5W 50ML 50 ML IV SCH (05:40)
[2017-11-01] MEDS: ACETAMINOPHEN 1000 MG/100 ML IV PRN (06:56)
[2017-11-01 07:05] LABS: ALBUMIN 2.8 g/dL (3.5-5.0); ALBUMIN/GLOBULIN RATIO 0.9 (0.8-2.0); ANION GAP 16.8 mmol/L (8-16); CALCIUM 8.7 mg/dL (8.4-10.2); CREATININE, SERUM 5.04 mg/dL (0.72-1.25)
[2017-11-01 07:12] LABS: POTASSIUM 5.8 mmol/L (3.5-5.1)
[2017-11-01] MEDS: INSULIN REGULAR, HUMAN 100 UNIT/1 ML 3ML VIAL SQ SCH ×4 (07:30→21:00)
[2017-11-01] MEDS ORDERED: SOD POLYSTYRENE SULFONATE SUSP 15 GM/60 ML BTL PO ONE (08:45)
[2017-11-01] MEDS ORDERED: LACTULOSE SYRUP 20 GM/30 ML UDC PO ONE (08:45)
[2017-11-01] MEDS: SENNOSIDES 8.6 MG TAB PO SCH ×2 (09:00→17:00)
[2017-11-01] MEDS: PANTOPRAZOLE SOD 40 MG TABEC PO SCH (09:07)
[2017-11-01] MEDS: SEVELAMER CARBONATE 800 MG TAB PO SCH ×3 (09:07→17:00)
[2017-11-01] MEDS: MINOXIDIL 2.5 MG TAB PO SCH ×2 (09:08→17:00)
--- NOTE | 2017-11-01 14:24 | Progress Note ---
DATE: November 01, 2017 I am covering for Dr. Freedman. SUBJECTIVE: The patient is doing well with no complaints. His potassium was elevated at 5.8 though he had dialysis yesterday. He denies any potassium foods leading to his high potassium. OBJECTIVE VITAL SIGNS: Temperature is 98.5, pulse 80, respiratory rate 16, blood pressure 131/61, pulse ox 92% and he is on room air. GENERAL: Not in acute distress. Alert and oriented times 3. Cooperative on examination. HEENT: Head is normocephalic and atraumatic. Eyes: Pupils equal, round and reactive to light bilaterally. Extraocular movements intact bilaterally. NECK: Supple. Good range of motion. Throat with no evidence of any erythema or exudates in the posterior pharynx. Has poor dentition. PULMONARY: Clear to auscultation bilaterally. No wheezing. No rales. No rhonchi. No crackles appreciated. CARDIOVASCULAR: Positive S1 and S2. No murmurs, rubs or gallops appreciated. ABDOMEN: Soft, nondistended and nontender to palpation. Bowel sounds present. MUSCULOSKELETAL: Strength is 5/5 throughout. No evidence of any motor deficit on examination. No weakness appreciated. NEUROLOGICAL: Cranial nerves II-XII are grossly intact. No evidence of any neurological deficits on exam. SKIN: Intact. Warm to touch. Good cap refill. PSYCHIATRIC: Normal affect and mood. EXTREMITIES: No edema. Good range of motion throughout. LAB FINDINGS: Show a white count of 6.7, hemoglobin 9, hematocrit 27, and platelets of 110,000. Chemistry: Sodium 138, potassium 5.8, chloride 99, bicarb 28, anion gap of 16, BUN is 31, creatinine is 5. Albumin 2.8. Coagulation is normal. MICROBIOLOGY: None. IMAGING STUDIES: None. IMPRESSION 1. Postoperative day #1 of status post right femoral neck open reduction internal fixation. 2. End-stage renal disease, on hemodialysis. 3. Hyperkalemia, unknown cause. 4. hypertension. 5. Type 2 diabetes. PLAN: At this time, the patient will continue with PT and OT for ambulation. Case management has been consulted for detention facility placement. His hemoglobin did drop to 9. Will repeat labs in the morning. His potassium was elevated, which was addressed by nephrology. Will continue with pain control and continue same plan of care. Job#: [id number] RI
[2017-11-01] MEDS: HYDROCODONE/APAP 10MG-325MG TAB PO PRN (15:13)
[2017-11-01] MEDS ORDERED: LACTULOSE SYRUP 20 GM/30 ML UDC PO NR (16:15)
[2017-11-01] MEDS ORDERED: DEXTROSE 50% SYRINGE 50 ML IV STA (16:15)
[2017-11-01] MEDS ORDERED: INSULIN REGULAR, HUMAN 100 UNIT/1 ML 3ML VIAL IV NR (16:15)
[2017-11-01] MEDS: RIVAROXABAN 10 MG TABLET PO SCH (17:00)
[2017-11-01] MEDS: GABAPENTIN 300 MG CAP PO SCH (21:35)
[2017-11-01] MEDS: LAMOTRIGINE 100 MG TAB PO SCH (21:35)
[2017-11-02 00:06] VITALS: BP 131/63
[2017-11-02] MEDS: HYDROCODONE/APAP 10MG-325MG TAB PO PRN (04:20)
[2017-11-02 05:08] VITALS: BP 143/65
[2017-11-02] MEDS: LEVOTHYROXINE SODIUM 50 MCG TAB PO SCH (05:12)
[2017-11-02 06:13] LABS: BASOPHILS % 0.4 % (0.0-1.0); EOSINOPHILS # (AUTO) 0.3 (0.0-0.4); EOSINOPHILS % 3.3 % (0.0-6.0); HEMATOCRIT 22.7 % (38.2-49.6); HEMOGLOBIN 7.7 g/dL (14.0-18.0); LYMPHOCYTES # (AUTO) 0.6 (1.0-3.2); LYMPHOCYTES % 7.2 % (18.0-39.1); MEAN CORPUSCULAR HEMOGLOBIN 33.3 pg (28-32); MEAN CORPUSCULAR HGB CONC 33.9 g/dL (31-35); MEAN CORPUSCULAR VOLUME 98.3 fL (81-99); MONOCYTES # (AUTO) 0.7 (0.2-0.8); NEUTROPHILS # (AUTO) 6.5 (2.1-6.9); NEUTROPHILS % 78.6 % (38.7-80.0); PLATELET COUNT 104 x10e3/uL (140-360); RED BLOOD COUNT 2.31 x10e6/uL (4.3-5.7); RED CELL DISTRIBUTION WIDTH 13.2 % (11.7-14.4)
[2017-11-02 06:15] LABS: ANION GAP 19.4 mmol/L (8-16); CALCIUM 8.4 mg/dL (8.4-10.2); CREATININE, SERUM 6.64 mg/dL (0.72-1.25); POTASSIUM 4.4 mmol/L (3.5-5.1)
[2017-11-02] MEDS: INSULIN REGULAR, HUMAN 100 UNIT/1 ML 3ML VIAL SQ SCH ×4 (07:30→21:00)
[2017-11-02 07:47] VITALS: BP 130/60
[2017-11-02] MEDS: MINOXIDIL 2.5 MG TAB PO SCH ×2 (08:02→15:40)
[2017-11-02] MEDS: PANTOPRAZOLE SOD 40 MG TABEC PO SCH (08:09)
[2017-11-02] MEDS: SENNOSIDES 8.6 MG TAB PO SCH ×2 (08:10→16:35)
[2017-11-02] MEDS: ACETAMINOPHEN 1000 MG/100 ML IV PRN (08:10)
[2017-11-02] MEDS: SEVELAMER CARBONATE 800 MG TAB PO SCH ×3 (08:10→16:35)
[2017-11-02] MEDS ORDERED: SODIUM CHLORIDE 0.9% 1000ML 1,000 ML ONE (12:05)
[2017-11-02 12:52] VITALS: BP 136/61
[2017-11-02] MEDS ORDERED: SODIUM CHLORIDE 0.9% 250ML 250 ML ONE (14:10)
[2017-11-02 16:00] VITALS: BP 113/56
[2017-11-02] MEDS: RIVAROXABAN 10 MG TABLET PO SCH (16:35)
--- NOTE | 2017-11-02 17:05 | Consultation ---
DATE OF CONSULTATION: November 02, 2017 REFERRING PHYSICIAN: Dr. Cb Freedman. Thank you Dr. Freedman for asking me to see Mr. Myers in consultation. REASON FOR CONSULTATION 1. Right hip replacement secondary to old right hip fracture and renewal of hardware. 2. Late effects CVA with right-sided weakness. 3. End stage renal disease on hemodialysis. 4. Hypertension. 5. Hypothyroidism. HISTORY: Patient is a 72-year-old male with history of end stage renal disease on dialysis who broke his right hip about a year and a half ago. Had screws placed but it started deteriorating. Had to have the screws removed and underwent a right hip replacement by Dr. Carrillo. The patient's case is complicated by the fact that he had old CVA about 3 years ago with pretty good recovery but still having some issues with right-sided weakness and sensation. In addition to that, he is on dialysis. I am being asked to evaluate rehab needs. PAST MEDICAL HISTORY: End stage renal disease on hemodialysis, hypertension, hypothyroidism, focal polyneuropathy, CVA with right-sided weakness, secondary hyperparathyroidism. SURGERIES INCLUDE: Right hip repair with pin and screw removal as well as meniscal surgery. ALLERGIES: LOSARTAN. SOCIAL HISTORY: Lives with his in a one-story house. 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 He states that he was ambulatory, getting around fairly well without any use of any assistive device prior to his recent surgery despite the fact that he has had a deteriorating hip. He lives in a one-story home. FAMILY HISTORY: Noncontributory. HABITS: Negative. 104. Sodium is 138, potassium 4.4, BUN 48, creatinine 6.6. Rehab-carroll, patient worked with therapy and he ambulated and transferred with min assist. Walked a short distance about 30 feet with min assist. Unsteady gait and needed assistance and help with . PHYSICAL EXAMINATION GENERAL: He is awake, alert, oriented x3, currently on hemodialysis. EYES: Gaze is conjugate. ORAL: Tongue is midline. NECK: Supple. HEART: Regular rate and rhythm. LUNGS: Fair entry. ABDOMEN: Nontender, nondistended. No pain. EXTREMITIES: He has a leg abductor pillow placed. Sensory-carroll had some heaviness to right arm and right leg from his old stroke. Manual muscle testing, he had pretty good strength in his right hand but I could not test his elbow or shoulder because he was getting dialysis. He had left upper extremity 5/5 strength and right lower extremity hip and knee flexion. Extension was limited secondary to recent surgery. He could hold his ankle dorsiflexed with 4/5 strength in the left leg. He demonstrated 4+/5 strength to 5/5 strength in the left leg. IMPRESSION 1. Status post hip replacement secondary to previous hip fracture with screw removal. 2. History late effects cerebrovascular accident right-sided numbness/weakness, incoordination of gait. 3. End stage renal disease on hemodialysis. 4. Hypertension. 5. Hypothyroidism. PLAN: Will check with insurance to see if we can get him to inpatient rehab as he really does have more than the average number of comorbids. The fact is he is actually doing fairly well and has a chance to improve even more. We will follow along with you. Thank you once again for allowing me to participate in the care of this very pleasant patient. PRECAUTIONS: Falls, right hip dysplasia precautions. Job#: [id number] FORD
[2017-11-02 20:00] VITALS: BP 148/65
[2017-11-02] MEDS: GABAPENTIN 300 MG CAP PO SCH (20:05)
[2017-11-02] MEDS: LAMOTRIGINE 100 MG TAB PO SCH (20:05)
[2017-11-02] MEDS: HYDROMORPHONE 1MG/1ML INJ IV PRN (20:06)
[2017-11-03] VITALS: BP 152/88
[2017-11-03 04:00] VITALS: BP 157/74
[2017-11-03] MEDS: LEVOTHYROXINE SODIUM 50 MCG TAB PO SCH (05:33)
[2017-11-03] MEDS: HYDROCODONE/APAP 5MG-325MG TAB PO PRN ×3 (05:36→23:41)
[2017-11-03] MEDS: INSULIN REGULAR, HUMAN 100 UNIT/1 ML 3ML VIAL SQ SCH ×4 (07:30→21:00)
[2017-11-03 07:47] LABS: BASOPHILS % 0.4 % (0.0-1.0); EOSINOPHILS # (AUTO) 0.2 (0.0-0.4); EOSINOPHILS % 2.3 % (0.0-6.0); HEMATOCRIT 24.6 % (38.2-49.6); HEMOGLOBIN 8.3 g/dL (14.0-18.0); LYMPHOCYTES # (AUTO) 0.6 (1.0-3.2); MEAN CORPUSCULAR HGB CONC 33.7 g/dL (31-35); MONOCYTES # (AUTO) 0.8 (0.2-0.8); MONOCYTES % 9.8 % (4.4-11.3); NEUTROPHILS # (AUTO) 6.1 (2.1-6.9); NEUTROPHILS % 78.5 % (38.7-80.0); PLATELET COUNT 117 x10e3/uL (140-360); RED BLOOD COUNT 2.59 x10e6/uL (4.3-5.7); RED CELL DISTRIBUTION WIDTH 15.2 % (11.7-14.4)
[2017-11-03 08:00] VITALS: BP 137/61
[2017-11-03 08:06] LABS: ANION GAP 16.8 mmol/L (8-16); CALCIUM 8.9 mg/dL (8.4-10.2); CREATININE, SERUM 4.87 mg/dL (0.72-1.25); POTASSIUM 3.8 mmol/L (3.5-5.1)
[2017-11-03] MEDS: PANTOPRAZOLE SOD 40 MG TABEC PO SCH (08:13)
[2017-11-03] MEDS: SEVELAMER CARBONATE 800 MG TAB PO SCH ×3 (08:13→16:28)
[2017-11-03] MEDS: MINOXIDIL 2.5 MG TAB PO SCH ×2 (08:14→16:28)
[2017-11-03] MEDS: SENNOSIDES 8.6 MG TAB PO SCH ×2 (08:14→16:28)
[2017-11-03] MEDS: METOPROLOL TARTRATE 25 MG TAB PO SCH ×2 (08:14→16:21)
[2017-11-03 12:00] VITALS: BP 124/60
[2017-11-03 16:00] VITALS: BP 126/57
[2017-11-03] MEDS: RIVAROXABAN 10 MG TABLET PO SCH (16:28)
[2017-11-03 20:00] VITALS: BP 132/63
[2017-11-03] MEDS: GABAPENTIN 300 MG CAP PO SCH (23:17)
[2017-11-03] MEDS: LAMOTRIGINE 100 MG TAB PO SCH (23:17)
[2017-11-04] VITALS: BP 132/62
[2017-11-04 04:00] VITALS: BP 124/61
[2017-11-04] MEDS: LEVOTHYROXINE SODIUM 50 MCG TAB PO SCH (06:24)
[2017-11-04] MEDS: INSULIN REGULAR, HUMAN 100 UNIT/1 ML 3ML VIAL SQ SCH (07:30)
[2017-11-04 08:43] VITALS: BP 184/77
[2017-11-04] MEDS: SEVELAMER CARBONATE 800 MG TAB PO SCH ×3 (08:59→17:00)
[2017-11-04] MEDS: SENNOSIDES 8.6 MG TAB PO SCH ×2 (08:59→17:00)
[2017-11-04] MEDS: MINOXIDIL 2.5 MG TAB PO SCH ×2 (08:59→16:59)
[2017-11-04] MEDS: METOPROLOL TARTRATE 25 MG TAB PO SCH ×2 (08:59→17:00)
[2017-11-04] MEDS: PANTOPRAZOLE SOD 40 MG TABEC PO SCH (08:59)
[2017-11-04] MEDS ORDERED: SODIUM CHLORIDE 0.9% 1000ML 1,000 ML ONE (09:38)
[2017-11-04 10:16] VITALS: BP 184/77
[2017-11-04 11:59] VITALS: BP 136/66
[2017-11-04 16:22] VITALS: BP 143/65
[2017-11-04] MEDS: HYDROCODONE/APAP 5MG-325MG TAB PO PRN (17:00)
[2017-11-04] MEDS: RIVAROXABAN 10 MG TABLET PO SCH (17:00)
--- NOTE | 2017-11-05 09:13 | Discharge Summary ---
PRIMARY CARE PHYSICIAN: Dr. Melissa Rosa CONSULTANTS: 1. Dr. Carroll Carrillo 2. Dr. Alo Ho 3. Dr. Avery cSott FINAL DIAGNOSES: 1. Left hip acute femoral neck fracture. 2. Status post left hip hemiarthroplasty. 3. End-stage renal disease, on dialysis. 4. Hypertension. SUMMARY: Patient is a 72-year-old male, early in the year had his hardware removed from his left hip ORIF. He did well until more so recently he developed radiating pain to the right thigh and leg area. Patient was seen multiple times, multiple ER visits. Subsequently, CT scan showed chronic fractures. The MRI, however, showed acute fractures. The patient is now status post left hip hemiarthroplasty. The patient is stable postop. He is ambulatory. He is going home for outpatient physical therapy like he did when he had his previous hip surgery. Patient is stable. Resume home medication. He will continue with his Plavix and aspirin. He did receive 2 units of blood transfusion on dialysis. Patient is at risk for bleed. He is more active. DVT prophylaxis is limited, but patient will continue with his Plavix and aspirin for now. He is ambulatory. He is a high functional patient. The patient is stable, resume home medication, discussed with the patient at length. He will need to follow up with Dr. Carroll Carrillo for postop care. Continue his dialysis. Outpatient physical therapy has been arranged. Job#: [id number]
== END 2017-11-04 18:30 | disposition home or self-care (01) | DRG 469 ==
LOC: ER 15:24 → ERHOLD 16:58 → MED/SURG 10-30 01:10
PROVIDERS: ADMIT Internal Medicine; ATTEND Internal Medicine
PROC: 5A1D70Z Performance of Urinary Filtration, Intermittent, Less than 6 Hours Per Day (ICD-10-PCS; 2017-10-30)
PROC: 5A1D70Z Performance of Urinary Filtration, Intermittent, Less than 6 Hours Per Day (ICD-10-PCS; 2017-10-31)
PROC: 0SRR0J9 Replacement of Right Hip Joint, Femoral Surface with Synthetic Substitute, Cemented, Open Approach (ICD-10-PCS; principal; 2017-10-31 08:14)
PROC: 30233N1 Transfusion of Nonautologous Red Blood Cells into Peripheral Vein, Percutaneous Approach (ICD-10-PCS; 2017-11-02)
PROC: 5A1D70Z Performance of Urinary Filtration, Intermittent, Less than 6 Hours Per Day (ICD-10-PCS; 2017-11-02)
PROC: 5A1D70Z Performance of Urinary Filtration, Intermittent, Less than 6 Hours Per Day (ICD-10-PCS; 2017-11-04)
DX: S72.011A Unspecified intracapsular fracture of right femur, initial encounter for closed fracture (principal); N18.6 End stage renal disease; I12.0 Hypertensive chronic kidney disease with stage 5 chronic kidney disease or end stage renal disease; S72.401A Unspecified fracture of lower end of right femur, initial encounter for closed fracture; E03.9 Hypothyroidism, unspecified; Z99.2 Dependence on renal dialysis; E21.3 Hyperparathyroidism, unspecified; D63.8 Anemia in other chronic diseases classified elsewhere; E11.42 Type 2 diabetes mellitus with diabetic polyneuropathy; E87.5 Hyperkalemia; G47.33 Obstructive sleep apnea (adult) (pediatric); Z87.891 Personal history of nicotine dependence
CPT/HCPCS: 36415; 71045; 80048; 80053; 82948; 83880; 84132; 84484; 85025; 85610; 85730; 86704; 86705; 86706; 86850; 86900; 86920; 87340; 90962; 93005; 93306; 93971; 97139; 99284; C1713; J1100; J1170; J2001; J2405; J7030; J7050; J7799; P9016

== ENCOUNTER → 2018-08-26 | Outpatient (CLI) | payer OTHER ==
[~2018-08-26] MED LIST changes: +ASPIR 8181 MG PO; +METOPROLOL TART25 MG PO; +REGADENOSON 0.4 MG/5 ML SYR IV ONE; +RENVELA800 MG PO
--- NOTE | 2018-08-26 16:13 | Myoview Stress Test ---
DATE OF STUDY: 08/26/2018 07:40:00 Stress Test - Treadmill ONLY PROCEDURE: Lexiscan Myoview stress test. INDICATION: Chest pain. TECHNIQUE: The patient was given 10 mCi of Myoview. Resting images were obtained in the horizontal long axis, vertical long axis, and short axis. The patient was then hooked up to the EKG machine. Lexiscan was infused over 15 seconds. At the end of Lexiscan infusion, the patient was given 30 mCi of Myoview. Stress images were obtained 30 minutes after completion of Lexiscan infusion. Stress images were obtained in the horizontal long axis, vertical long axis, and short axis. RESULTS: 1. The resting EKG demonstrated normal sinus rhythm with some nonspecific ST and T-wave changes. 2. There were no EKG changes and no symptoms during Lexiscan infusion. 3. The patient had normal perfusion to all segments of the myocardium in both stress and rest. 4. There was normal left ventricular size and function with an ejection fraction of 70%. CONCLUSIONS: The patient has normal perfusion to all segments of the myocardium with no evidence of ischemia. There was normal left ventricular size and function. Bob Rinaldi MD DSH/MODL /[id number] cc: Melissa Rosa MD
== END ==
LOC: NM 07:30
PROVIDERS: ATTEND Internal Medicine Cardiovascular Disease
DX: R06.00 Dyspnea, unspecified (principal)
CPT/HCPCS: 78452; 93017; A9502; J2785

== ENCOUNTER → 2018-09-16 | Outpatient (CLI) | payer MEDICARE ==
[~2018-09-16] MED LIST changes: -REGADENOSON 0.4 MG/5 ML SYR IV ONE
[2018-09-16 13:15] LABS: INR 0.93; PARTIAL THROMBOPLASTIN TIME 28.8 seconds (23.8-35.5)
[2018-09-16 14:09] LABS: BODY FLUID APPEARANCE TURBID; BODY FLUID COLOR RED; BODY FLUID TYPE PLEURAL
--- NOTE | 2018-09-16 15:20 | Diagnostic Imaging Report ---
EXAM: Ultrasound-guided thoracentesis DATE: 09/16/2018 1:18 PM INDICATION: Shortness of breath COMPARISON: None PROCEDURES PERFORMED: Ultrasound guided thoracentesis Ultrasound images archived in PACS. Anesthesia: Local, 1% lidocaine Devices: 5-Arabic Conversion Logiceh centesis needle PROCEDURE REPORT: After informed consent was obtained, ultrasound was utilized to identify a safe entry route for drainage of the right pleural effusion. It was noted to have multiple septations. The overlying skin was prepped and draped in usual sterile fashion. Lidocaine1% was used for local anesthesia. Under ultrasound guidance, a centesis needle was advanced into the pleural effusion in the right chest. A total of 150 cc of bloody effusion were aspirated without complication. The catheter was removed and a dressing applied to the skin. Complications: None Blood loss: Minimal, less than 1cc Samples: 150 cc of bloody effusion Patient disposition: Post procedure chest x-ray IMPRESSION: 1. Right thoracentesis reveals multi septations and loculations involving the effusion. 2. Only 150 cc was able to be aspirated and was sent to the laboratory per the ordering Physician. 3. If the patient continues to be short of breath would recommend a CT scan of the chest with IV contrast for further evaluation. Signed by: Dr. Yasir Meeks DO on 09/16/2018 3:17 PM
[2018-09-16 15:37] LABS: RBC,BODY FLUID 55440 cells/uL; WBC,BODY FLUID 495 cells/uL
[2018-09-16 18:21] LABS: LYMPHOCYTES,BODY FLUID 71 %; MONO/MACROPHG,BODY FLUID 8 %; NEUTROPHILS,BODY FLUID 16 %
[2018-09-16 18:22] LABS: OTHER CELLS,BODY FLUID 5 %
== END ==
LOC: US 11:34
PROVIDERS: ATTEND Internal Medicine Critical Care Medicine
DX: R06.02 Shortness of breath (principal); J90 Pleural effusion, not elsewhere classified
CPT/HCPCS: 32555; 36415; 71045; 83615; 84157; 85049; 85610; 85730; 88112; 88305; 89051

== ENCOUNTER 2018-09-27 09:07 | Observation (INO) | payer MEDICARE, OTHER ==
[~2018-09-27] VITALS: Ht 172.7 cm; Wt 84.4 kg
[2018-09-27] VITALS (7 sets, daily range): BP systolic 124–156; BP diastolic 62–73
[2018-09-27 09:33] LABS: BASOPHILS % 0.6 % (0.0-1.0); EOSINOPHILS # (AUTO) 0.2 (0.0-0.4); EOSINOPHILS % 3.8 % (0.0-6.0); HEMATOCRIT 30.4 % (38.2-49.6); HEMOGLOBIN 9.8 g/dL (14.0-18.0); LYMPHOCYTES # (AUTO) 0.8 (1.0-3.2); LYMPHOCYTES % 15.1 % (18.0-39.1); MEAN CORPUSCULAR HEMOGLOBIN 31.4 pg (28-32); MEAN CORPUSCULAR HGB CONC 32.2 g/dL (31-35); MEAN CORPUSCULAR VOLUME 97.4 fL (81-99); MONOCYTES # (AUTO) 0.4 (0.2-0.8); MONOCYTES % 6.9 % (4.4-11.3); NEUTROPHILS # (AUTO) 3.8 (2.1-6.9); NEUTROPHILS % 72.5 % (38.7-80.0); PLATELET COUNT 187 x10e3/uL (140-360); RED BLOOD COUNT 3.12 x10e6/uL (4.3-5.7); RED CELL DISTRIBUTION WIDTH 14.5 % (11.7-14.4)
--- NOTE | 2018-09-27 09:54 | Diagnostic Imaging Report ---
CT BRAIN WO HISTORY: Right-sided weakness COMPARISON: Head CT 08/14/2015; report from brain MRI dated 08/11/2015 (images not available) Technique: Noncontrast axial scans were obtained from skull base to the vertex. Coronal and sagittal reconstructions obtained from the axial data. One or more of the following dose reduction techniques were used: Automated exposure control, adjustment of the mA and/or kV according to patient size, and/or utilization of iterative reconstruction technique. DISCUSSION: Scalp/Skull: Unremarkable. Brain sulci: Mildly prominent. Ventricles: Compensatory dilatation. Extra-axial spaces: No masses or fluid collections. Carotid and vertebral artery calcifications are present. Parenchyma: There is an old cortical infarct along the left posterior inferior frontal gyrus (pars opercularis). Mild bilateral deep white matter hypodensity is likely chronic microvascular ischemic change. Old right putaminal and left lentiform nuclei lacunar infarcts are present. Otherwise, no masses, hemorrhage, or large vascular territory acute infarct. Dural sinuses: No abnormal densities. Sellar/Suprasellar region: Intact. Skull base: Intact. Incidental findings: None. IMPRESSION: 1. No acute intracranial abnormalities. 2. Mild supratentorial chronic microvascular ischemic change. Mild generalized cerebral volume loss. 3. Old left frontal opercular cortical infarct. 4. Old right putaminal and left lentiform nuclei lacunar infarcts. Signed by: Dr. Asher Zee M.D. on 09/27/2018 9:51 AM
[2018-09-27 09:57] LABS: ALBUMIN 3.3 g/dL (3.5-5.0); ALBUMIN/GLOBULIN RATIO 0.9 (0.8-2.0); ANION GAP 19.8 mmol/L (8-16); CALCIUM 8.9 mg/dL (8.4-10.2); CREATININE, SERUM 8.98 mg/dL (0.72-1.25); POTASSIUM 4.8 mmol/L (3.5-5.1)
[2018-09-27 10:21] LABS: CREATINE KINASE MB 1.1 ng/mL (0-5.0)
[2018-09-27 10:36] LABS: PROTHROMBIN TIME 13.7 seconds (11.9-14.5)
--- NOTE | 2018-09-27 11:22 | Diagnostic Imaging Report ---
PROCEDURE: A single AP view of the chest. COMPARISON: 09/16/2018. INDICATIONS: sob, altered mental status, weakness right side FINDINGS: Moderate right and small left pleural effusions with right greater than left lower lung linear opacities. There stable borderline enlargement of the cardiac silhouette with prominence of the pulmonary interstitium. No acute osseous abnormalities. IMPRESSION: Small left and moderate right pleural effusion, unchanged relative to 09/16/2018. Borderline cardiomegaly with pulmonary venous congestion. Bilateral mid and lower lung scarring, left worse than right. Dictated by: Bob Abel M.D. on 09/27/2018 at 11:26 Electronically approved by: Bob Abel M.D. on 09/27/2018 at 11:26
[2018-09-27] MEDS ORDERED: FUROSEMIDE INJ 10 MG/ML 4 ML VIAL IV ONE (12:30)
--- NOTE | 2018-09-27 12:59 | NUR ---
RCD PT FROM ER BY BED PT IS ALERT AND ORIENTED VITALS CHECKED PT RESTING ON BED NO SIGNS OF ANY DISTRESS NOTED IV PATENT ADMISSION ASSESSMENT DONE PT SAID HE STARTED TO WEAKNESS ON THE RT SIDE AND NOT ABLE TO TALK HE DONT HAVE ANY COMPLAINANTS NOW FAMILY AT BED SIDE HE GETTING HD FISTULA ON RIGHT ARM INSTRUCTED PT AND FAMILY REGARDING HOSPITAL POLICY AND ROUTINE BED LOW AND LOCKED CALL LIGHT IN REACH
--- NOTE | 2018-09-27 13:18 | Diagnostic Imaging Report ---
MRI BRAIN WO HISTORY: Leg weakness, CVA COMPARISON: Head CT 09/27/2018 TECHNIQUE: Sagittal T2, axial T2, axial T1, axial T2/FLAIR, axial gradient echo (or susceptibility weighted), coronal T2/FLAIR, and axial diffusion weighted MR images of the brain were obtained without contrast. Motion and noise artifacts obscure some details. DISCUSSION: Scalp/bone marrow: Unremarkable. Brain sulci: Prominent. Ventricles: Compensatory dilatation. Extra-axial spaces: No masses or fluid collections. Parenchyma: Scattered T2/FLAIR hyperintense foci throughout the supratentorial white matter are likely chronic microvascular ischemic changes. Old left frontal opercular cortical infarct is again noted. Old small lacunar infarcts along the bilateral putamina are present. Otherwise, no mass, hemorrhage, or acute vascular insults. Vessels: Normal flow voids in major arteries and veins. Sellar/Suprasellar region: No abnormalities. Craniocervical junction: No abnormalities. Incidental findings: None. IMPRESSION: 1. No acute intracranial abnormalities. 2. Mild supratentorial chronic microvascular ischemic change. Mild generalized cerebral volume loss. 3. Old left frontal opercular cortical infarct. 4. Old small bilateral putaminal lacunar infarcts. Signed by: Dr. Asher Zee M.D. on 09/27/2018 1:15 PM
--- NOTE | 2018-09-27 13:58 | Diagnostic Imaging Report ---
EXAM: CT Chest WITH intravenous contrast 09/27/2018 11:44 AM INDICATION: Shortness of breath COMPARISON: Chest radiograph of earlier the same day TECHNIQUE: Chest was scanned utilizing a multidetector helical scanner from the lung apex through the level of the adrenal glands without administration of IV contrast. Coronal and sagittal reformations were obtained. Routine protocol was performed. IV CONTRAST: 100mL Isovue 370 RADIATION DOSE: Total DLP: 527.83 mGy*cm. Dose modulation, iterative reconstruction, and/or weight based adjustment of the mA/kV was utilized to reduce the radiation dose to as low as reasonably achievable. COMPLICATIONS: None FINDINGS: LINES/ TUBES: None. LUNGS AND AIRWAYS: The central airways are patent. There is dependent subsegmental atelectasis at the right greater than left lower lobes. Smooth interlobular septal thickening. Mild biapical centrilobular emphysema. No focal consolidation. No pulmonary embolism. PLEURA: Moderate right pleural effusion. Trace left pleural effusion. There are scattered areas of bilateral pleural thickening with focal calcification, consistent with pleural plaques. Status post cholecystectomy. HEART AND MEDIASTINUM: There are several hypoattenuating lesions in the left thyroid gland, the largest of which measures 9 mm on series 2 image 11. There are scattered large mediastinal lymph nodes, including a 2.2 x 1.6 cm pretracheal node on series 2 image 27 and a 1.6 cm short axis subcarinal node on series 2 image 49. The heart is mildly enlarged. No pericardial effusion. Atherosclerotic calcifications involve the coronary arteries and thoracic aorta. UPPER ABDOMEN: Limited views of the upper abdomen show no abnormality within the visualized liver, spleen, pancreas, or kidneys. The adrenal glands are normal. BONES: Mild degenerative changes of the visualized spine. SOFT TISSUES: Unremarkable. IMPRESSION: 1. Mild pulmonary edema. Moderate right pleural effusion and trace left pleural effusion with associated dependent subsegmental atelectasis of right greater than left lower lobes. 2. Scattered areas of bilateral pleural thickening with focal calcification consistent with pleural plaques. This can be seen with priors vessels exposure. 3. Mediastinal lymphadenopathy as above, nonspecific and possibly reactive. 4. Coronary artery atherosclerotic calcifications. Signed by: Humberto Bradshaw MD on 09/27/2018 1:55 PM
--- NOTE | 2018-09-27 14:06 | NUR ---
PAGED AND TALKED CLAIR AT [facility] REGARDING HD SHE SAID SHE WILL ARRANGE SOMEONE
--- NOTE | 2018-09-27 14:56 | Consultation ---
DATE OF CONSULTATION: 09/27/2018 HISTORY OF PRESENT ILLNESS: Mr. Ebenezer Myers is known to me. He is a 73-year-old gentleman, underlying history of end-stage renal disease, hypertension, multiple comorbidities. For the last month or so, he has been having progressive shortness of breath and dyspnea on exertion, but the main reason for admission today was that he could not walk today. He says that his legs were very weak, he thought he had had a stroke and subsequently came to the hospital. He is in [id number] respiratory distress. Scheduled for dialysis today. Dialysis nurse has not been called yet. The nurse is in the process of calling them for stat dialysis. He denies any cough, fever, chills. He states he can now move his extremities well, he is moving all four extremities. There is no facial droop noted, there is no slurred speech. He denies any nausea, vomiting, or abdominal pain. Workup included CT scan of the chest, shows mild pulmonary edema, moderate right pleural effusion, trace left pleural effusion, scattered areas of bilateral pleural thickening with focal calcifications consistent with pleural plaques, metastatic lymphadenopathy as above and coronary artery atherosclerosis. There are several hypoattenuating lesions in the left thyroid gland, largest of which is 9 mm. There are scattered large mediastinal lymph nodes. The heart is mildly enlarged. He also had a brain MRI done, please see official report, shows no acute intracranial abnormalities, old left frontal opercular cortical infarct, old small bilateral putaminal lacunar infarcts. The patient recently underwent right-sided thoracentesis, about 125 mL of fluid was removed as an outpatient. He has underlying history of hypertension, congestive heart failure, end-stage renal disease, secondary hyperparathyroidism, hypertensive kidney failure, history of hypothyroidism, prior history of hip fracture, history of prior ND, history of prior left shoulder surgery, history of peripheral vascular disease, history of type 2 diabetes with diabetic nephropathy, diabetic kidney disease, retinopathy and neuropathy. SOCIAL HISTORY: He does not smoke or drink. He has a very supportive . FAMILY HISTORY: Significant for hypertension and diabetes. CURRENT LABS: Show white count 5.2, hemoglobin 9.8, potassium 4.8, bicarbonate 28, creatinine 9 approximately with a troponin I of 0.012. BNP 523. PHYSICAL EXAMINATION: GENERAL: Awake, alert, lying supine, appears [id number] respiratory distress. VITAL SIGNS: Blood pressure 177/72, pulse rate 77, respiratory rate 20, oxygen saturation 99% on 2 L nasal cannula. HEAD AND NECK: Cornea clear. Oral mucosa moist. Neck veins not distended. LUNGS: Bilateral bibasilar rales with decreased air entry and impaired percussion noted right to left base. HEART: S1, S2 audible. No gallops. Soft 2 to 3/6 ejection systolic murmur heard over left sternal border. ABDOMEN: Otherwise soft, nontender. No apparent visceromegaly. EXTREMITIES: Lower extremity examination show no edema. SCHOOL EXAMINER: The patient moving all four limbs equally. IMPRESSION AND PLAN: Evidence of congestive heart failure, end-stage renal disease, multiple comorbidities, recurrent effusion, possible exudate with lung atelectasis, mediastinal lymphadenopathy, as well as pleural calcification, possible asbestosis, possible granulomatous lung disease. Defer workup to Dr. Jeovanny Rinaldi. I will arrange for stat hemodialysis. O2 protocol. Fluid restriction. Renal diet. Blood pressure control. The patient has a thyroid nodule, recommend Endocrinology consultation for possible outpatient thyroid nodule biopsy. Please see orders. MD DANNY Webber/NIKOS /[id number]
[2018-09-27] MEDS ORDERED: ALPRAZOLAM 0.25 MG TAB PO PRN (16:45)
[2018-09-27] MEDS ORDERED: ALBUMIN 25% 12.5GM 0.25 GM/ML BTL IV PRN (16:45)
[2018-09-27] MEDS ORDERED: SODIUM CHLORIDE 0.9% 250ML 500 ML IV PRN (16:45)
[2018-09-27] MEDS ORDERED: SODIUM CHLORIDE 0.9% 1000ML 2,000 ML IV PRN (16:45)
[2018-09-27] MEDS ORDERED: ONDANSETRON HCL INJ 2MG/ML 2ML 2 MG/ML VIAL IV PRN (17:45)
[2018-09-27] MEDS ORDERED: ACETAMINOPHEN 325 MG TAB PO PRN (17:45)
[2018-09-27] MEDS ORDERED: IOPAMIDOL 370 MG/ML 200 ML INFUS..BTL INJ ONE (18:58)
[2018-09-27] MEDS ORDERED: SODIUM CHLORIDE 0.9% 50ML 50 ML ONE (18:58)
--- NOTE | 2018-09-27 19:04 | NUR ---
PT ON DIALYSIS BED SIDE REPORT GIVEN TO ONCOMING NURSE
--- NOTE | 2018-09-27 20:02 | History and Physical ---
CHIEF COMPLAINT: Hypoglycemia, concerns for stroke. HISTORY OF PRESENT ILLNESS: A 73-year-old male, known history of ESRD on dialysis, history of CAD on Plavix, seizure, hypothyroidism, and hypertension, who comes into the ED with concerns of stroke-like symptoms. Apparently, the patient this morning, got very confused, altered in which the called EMS. On arrival, his blood glucose level was 20. The patient was given dextrose with much improved. There are some reports that the patient had slurred speech and facial drooping. Denies any weakness anywhere. Denies any chest pain or palpitations. The patient is seen and evaluated at bedside on the medical floor. currently doing well with no complaints. He is alert and oriented x4. Vital signs are stable. He is currently receiving hemodialysis. REVIEW OF SYSTEMS: Pertinent positives: Slurred speech, facial drooping, and altered mental status. Pertinent negatives: Denies any chest pain, palpitation, nausea, vomiting, diarrhea, dysuria, hematuria, frequency, urgency, lightheadedness, dizziness, abdominal pain, headaches, shortness of breath, cough, congestion, fever, or any other complaints. The rest of the 14-point review of systems are reviewed with the patient and are negative. ALLERGIES: TO LOSARTAN. HOME MEDICATIONS: Xanax 0.25 mg p.o. t.i.d., aspirin 81 mg daily, Plavix 75 mg daily, Nexium 20 mg daily, gabapentin 300 mg at bedtime, lamotrigine 300 mg at bedtime, levothyroxine 50 mcg daily, Lanoxin 0.5 mg p.o. daily, . PAST MEDICAL HISTORY: ESRD on dialysis, CAD, history of seizures, and hypothyroidism. PAST SURGICAL HISTORY: Dialysis catheters in the past . FAMILY HISTORY: Hypertension and diabetes. SOCIAL HISTORY: No drugs. No alcohol. Does not smoke. Good social support. PHYSICAL EXAMINATION: VITAL SIGNS: Temperature is 96.8, pulse 68, respiratory rate is 20, blood pressure 131/78, and pulse ox 100% on 2 L nasal cannula. GENERAL: Not in acute distress. Alert and oriented x3. Cooperative on examination. HEENT: Head is normocephalic and atraumatic. Eyes; pupils are equal, round, and reactive bilaterally. Extraocular movements are intact. Throat, no evidence of erythema or exudates in the posterior pharynx. Has poor dentition. NECK: Supple. Good range of motion. PULMONARY: Clear to auscultation bilaterally. No wheezing, no rales, no rhonchi, no crackles appreciated. CARDIOVASCULAR: Positive S1 and S2. No murmurs, rubs, or gallops appreciated. ABDOMEN: Soft, nondistended, and nontender to palpation. Bowel sounds present. MUSCULOSKELETAL: Strength is 5/5 throughout. No evidence of any muscle deficits on examination. No weakness appreciated. NEUROLOGICAL: Cranial nerves II through XII grossly intact. No evidence of any neurological deficits on exam. SKIN: Intact. Warm to touch. Good cap refill. PSYCHIATRIC: Normal affect and mood. EXTREMITIES: No edema. Good range of motion throughout. LABORATORY FINDINGS: Show white count 5.3, hemoglobin 9.8, hematocrit is 30, and platelets of 187. Coagulation; PT 29, . Chemistry; sodium 140, potassium 4.2, chloride 99, bicarb 26, anion gap is 19, BUN 30, creatinine 0.9, glucose 135, calcium 8.9, ALT 9, alkaline phosphatase 159. Troponins are negative. . MICROBIOLOGY: None. IMAGING STUDIES: CT brain was performed and was found to be negative for any acute findings. There are some chronic changes seen. Chest x-ray shows small moderate right pleural effusion. There is some borderline congestion. Ultrasound pending. MRI of the brain shows no acute findings. It shows focal chronic findings. CT chest with contrast shows mild pulmonary edema. Moderate left pleural effusion with associated dependent subsegmental atelectasis on the right greater than left lower lobe. Scattered areas of bilateral pleural thickening with focal calcification sclerotic calcifications. IMPRESSION: 1. Transient ischemic attack. 2. End-stage renal disease, on hemodialysis with pulmonary edema. 3. Mediastinal lymphadenopathy. 4. History of seizures. 5. Hypothyroidism. PLAN: At this time, continue with aspirin and statin. MRI of the brain found to be negative. CT brain negative. Cardiac ultrasound pending. Neurology consulted. The patient will receive dialysis today. Nephrology was consulted. We will increase ultrafiltration. Cardiology was consulted for concerns of underlying chest pain. I feel like his underlying encephalopathy was secondary from hypoglycemia that occurred early this morning leading to his TIA-like symptoms. In relation to his mediastinal lymphadenopathy, I will go ahead and consult with Hematology. I am not sure if this is reactive versus concerns of . I discussed findings with the family at bedside. They verbalized understanding. We will continue with same plan of care and continue in IMCU. MD KATHLEEN Mcpherson/MODL /[id number]
[2018-09-27] MEDS ORDERED: NON-FORMULARY MEDICATION (Lamotrigine 300 MG) PO SCH (21:00)
[2018-09-27] MEDS ORDERED: GABAPENTIN 300 MG CAP PO SCH (21:00)
[2018-09-27] MEDS ORDERED: LEVOTHYROXINE SODIUM 50 MCG TAB PO SCH (21:00)
[2018-09-27] MEDS ORDERED: LAMOTRIGINE 100 MG TAB PO SCH (21:00)
--- NOTE | 2018-09-27 21:45 | NUR ---
Patient tolerated hemodialysis today for 3 hrs and 45 mins, pulled 3.5 L of fluids.
--- NOTE | 2018-09-27 23:43 | Consultation ---
DATE OF CONSULTATION: 09/27/2018 Pulmonary Critical Care Consultation. CHIEF COMPLAINT: Loculated pleural effusion and dyspnea. HISTORY OF PRESENT ILLNESS: The patient is a 73-year-old man with a history of end-stage renal disease and hypertension. He reports worsening dyspnea over the past month or two. He had a chest x-ray that showed a loculated right pleural effusion. He went for an ultrasound-guided thoracentesis, but Radiology was only able to remove 150 mL. The fluid was exudate. The patient has denied any fevers. He does report a significant exposure to asbestos. His father worked as an insulator and brought the asbestos home on his clothing on a regular basis. 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 The patient became disoriented and confused this morning. He called the rescue squad and they checked his blood sugar, apparently, it was 20. He received some D50 and was then transported to the emergency department. In the emergency department, his blood sugar was 105, and he started feeling better. His neurological symptoms resolved. PAST MEDICAL HISTORY: 1. End-stage renal disease. 2. Hypertension. PAST SURGICAL HISTORY: 1. Placement of a dialysis graft. 2. Prior shoulder surgery. SOCIAL HISTORY: The patient does not smoke or drink. He has significant asbestos exposure as noted above. FAMILY HISTORY: His father from a brain cancer. He also has a history of hypertension and diabetes in the family. ALLERGIES: THERE ARE NO KNOWN DRUG ALLERGIES. REVIEW OF SYSTEMS: The patient denies fevers. He is not complaining of weight loss. He does not complain of headache. He has no neck pain. He is not having any sore throat. He does note some dyspnea with exertion as well as some right-sided chest discomfort. His abdomen is soft. He is not having any nausea or vomiting. He denies any leg swelling. He did have some confusion and disorientation, but this has resolved. PHYSICAL EXAMINATION: VITAL SIGNS: The patient is afebrile. The blood pressure is 131/70, pulse is 87, and saturation is 100% on 2 L. HEENT: Shows no facial swelling, no erythema. The nasal mucosa is normal. The oropharynx is normal. LYMPHATIC: Shows no submandibular, cervical, or supraclavicular adenopathy. CARDIAC: Reveals a regular rate and rhythm with a normal S1 and S2. There are no murmurs or rubs heard. LUNGS: Auscultation of lungs shows decreased breath sounds at the bases. There is no wheezing. ABDOMEN: Soft and nontender. There is no rebound or guarding. EXTREMITIES: Show no leg edema or calf tenderness. LABORATORY DATA: Electrolytes are within normal limits. The creatinine is elevated. White blood cell count is 5.2 and hemoglobin is 9.8. The platelet count is 178. RADIOGRAPHIC DATA: MRI of the brain shows no acute intracranial abnormalities. There is an old left frontal cortical infarct. There are several small bilateral lacunar infarcts in the putamen bilaterally. Carotid Doppler: There is evidence of atherosclerotic disease, but there is no severe critical stenosis. CT scan of the chest shows a loculated right pleural effusion as well as calcified thickening of the pleura bilaterally consistent with asbestos exposure. There is a 2.2 x 1.5 cm pretracheal node as well as a 1.5 cm subcarinal node. IMPRESSION: 1. Loculated pleural effusion and mediastinal adenopathy in the setting of significant asbestos exposure. 2. Transient neurological findings consistent with hypoglycemia. 3. Hypertension. 4. Remote history of cerebrovascular disease. 5. End-stage renal disease. PLAN: 1. The patient will require a CT surgery evaluation and a probable video-assisted thoracoscopic biopsy of the pleura to rule out mesothelioma. 2. Continue to monitor the patient and evaluate neurological status. Jeovanny Rinaldi MD [facility]/MODL /[id number]
[2018-09-28 04:09] VITALS: BP 133/69
[2018-09-28 05:27] LABS: BASOPHILS % 0.8 % (0.0-1.0); EOSINOPHILS # (AUTO) 0.2 (0.0-0.4); EOSINOPHILS % 4.2 % (0.0-6.0); HEMATOCRIT 31.9 % (38.2-49.6); HEMOGLOBIN 10.2 g/dL (14.0-18.0); LYMPHOCYTES # (AUTO) 0.7 (1.0-3.2); LYMPHOCYTES % 12.5 % (18.0-39.1); MEAN CORPUSCULAR HEMOGLOBIN 31.2 pg (28-32); MEAN CORPUSCULAR VOLUME 97.6 fL (81-99); MONOCYTES # (AUTO) 0.5 (0.2-0.8); MONOCYTES % 8.6 % (4.4-11.3); NEUTROPHILS # (AUTO) 3.8 (2.1-6.9); NEUTROPHILS % 73.1 % (38.7-80.0); PLATELET COUNT 210 x10e3/uL (140-360); RED BLOOD COUNT 3.27 x10e6/uL (4.3-5.7); RED CELL DISTRIBUTION WIDTH 14.4 % (11.7-14.4)
[2018-09-28 05:39] LABS: ANION GAP 15.5 mmol/L (8-16); CALCIUM 9.1 mg/dL (8.4-10.2); CREATININE, SERUM 5.47 mg/dL (0.72-1.25); POTASSIUM 4.5 mmol/L (3.5-5.1)
[2018-09-28 06:12] LABS: CHOL/HDL RATIO 3.9 (3.9-4.7)
--- NOTE | 2018-09-28 07:05 | NUR ---
RCD PT AT BED PT IS ALERT AND ORIENTED PT RESTING ON BED IV PATENT FAMILY AT BED SIDE BED LOW AND LOCKED CALL LIGHT IN REACH
[2018-09-28] MEDS ORDERED: PANTOPRAZOLE SOD 40 MG TABEC PO SCH (07:30)
[2018-09-28 08:27] VITALS: BP 119/54
[2018-09-28 09:00] VITALS: BP 119/54
[2018-09-28] MEDS ORDERED: CLOPIDOGREL BISULFATE 75 MG TAB PO SCH (09:00)
[2018-09-28] MEDS ORDERED: ASPIRIN 81 MG CHEW TAB PO SCH (09:00)
[2018-09-28 12:22] VITALS: BP 137/59
--- NOTE | 2018-09-28 14:17 | Progress Note ---
DATE: 09/28/2018 SUBJECTIVE: The patient feels better. He is not having neurological symptoms. PHYSICAL EXAMINATION: VITAL SIGNS: The patient is afebrile. The vital signs are stable. HEENT: Shows no facial swelling or erythema. CARDIAC: Reveals regular rate and rhythm with a normal S1 and S2. There are no murmurs or rubs. LUNGS: Auscultation of lungs shows decreased breath sounds at the bases. ABDOMEN: Soft and nontender. IMPRESSION: 1. Loculated pleural effusion and mediastinal adenopathy in the setting of significant asbestos exposure. This is suggestive of possible mesothelioma. 2. Transient neurological findings consistent with hypoglycemia. 3. Hypertension. 4. End-stage renal disease. PLAN: 1. The patient should have a video-assisted thoracoscopic biopsy as well as mediastinal lymph node exploration to rule out mesothelioma or bronchogenic carcinoma. I recommend the patient be referred to Thoracic Surgery for this and I will arrange for this as to the patient's discharge. 2. Continue to monitor the patient and neurological status. 3. Obtain results of carotid Doppler studies. Jeovanny Rinaldi MD [facility]/MODL /[id number]
[2018-09-28 16:09] VITALS: BP 141/63
[2018-09-28] MEDS ORDERED: ONDANSETRON HCL 4 MG ORAL DISINTEGRATING TAB PO PRN (16:45)
--- NOTE | 2018-09-28 17:28 | NUR ---
PT WENT HOME IN SAFE CONDITION WITH HIS
--- NOTE | 2018-09-28 19:58 | Consultation ---
DATE OF CONSULTATION: 09/28/2018 Neurology Consult Note HISTORY OF PRESENT ILLNESS: Mr. 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 On the day of admission, Mr. Myers experienced the sudden onset of disorientation, generalized weakness with poor balance and impairment of gait, blurred vision, dysarthria, and confusion. Emergency Medical Services was notified by the patient's family. At the scene, the patient was found to have a fingerstick blood glucose of 20. While en route to Emergency Center at [facility], dextrose was administered by a measurement psychologist. A repeat fingerstick blood glucose a few minutes later was 105. Mr. Myers reports the above described symptoms rapidly improved following the administration of dextrose. Upon arrival in the emergency center, the patient was afebrile with a blood pressure of 177/72 mmHg and a pulse of 77 beats per minute. The findings of the patient's neurological examination are not available for review at this time. In the emergency center, routine laboratory data revealed a serum glucose of 135. A CT of the brain without contrast was performed while the patient was in the emergency center. There is no evidence of recent large territorial ischemia or hemorrhage on this study. Mr. Myers was then admitted to [facility] under observation status for further evaluation and treatment of his symptoms. Of note, by the time the patient had reached the emergency center, his symptoms have more or less resolved. As stated above, Mr. Myers has experienced three prior strokes. The first two strokes occurred in 2009. There were no residual deficits from the strokes. The patient's most recent stroke occurred in 2014. Deficits from this stroke include right hemiparesis and hemihypesthesia. Mr. Myers is uncertain whether or not these residual deficits worsened while he was hypoglycemic. Mr. Myers endorses compliance with aspirin 81 mg by mouth daily and Plavix 75 mg by mouth daily for stroke prophylaxis as prescribed by his flaker tender. REVIEW OF SYSTEMS: Shortness of breath, confusion, blurred vision, dysarthria, generalized weakness, impairment of balance and gait. Otherwise, a 12-point review of systems is negative. 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 Karoline Rinaldi. PAST SURGICAL HISTORY: Thoracentesis, right partial hip replacement, right forearm AV fistula, tonsillectomy, appendectomy, cholecystectomy, right knee arthroscopy, left shoulder arthroscopy. PAST HOSPITALIZATIONS: Surgeries/procedures as listed, strokes, lithium toxicity. FAMILY MEDICAL HISTORY: Multiple family members have had colon cancer. The patient's father at the age of 70 years from a brain tumor. Mr. Myers' mother is alive at 96 years of age and healthy. The patient's brother is from brain cancer. SOCIAL HISTORY: Mr. Myers is . He is retired. The patient reports a prior history of tobacco use, but quit smoking cigarettes approximately 5 years ago. The patient does not report current or prior alcohol or recreational drug use. HOME MEDICATIONS: Aspirin 81 mg by mouth daily, Plavix 75 mg by mouth daily, Lasix 40 mg by mouth daily, minoxidil 5 mg by mouth twice daily, Nexium 20 mg by mouth daily, levothyroxine 50 mcg by mouth daily, lamotrigine 300 mg by mouth at bedtime daily, alprazolam 0.25 mg by mouth three times daily, gabapentin 300 mg by mouth at bedtime daily, Renvela 800 mg by mouth 3 times daily with meals. HOSPITAL MEDICATIONS: Tylenol, albumin, Xanax, aspirin, Plavix, Neurontin, Lamictal, Synthroid, Zofran, Protonix, and sodium chloride. ALLERGIES: LOSARTAN. NO KNOWN FOOD ALLERGIES. NO KNOWN ALLERGIES TO LATEX. NO KNOWN ALLERGIES TO IODINE OR OTHER CONTRAST MATERIALS. PHYSICAL EXAMINATION: VITAL SIGNS: Height 68 inches, weight 186 pounds, BMI 28.3 kg/m2. Blood pressure 137/59 mmHg, pulse 64 beats per minute, respiratory rate 18 breaths per minute, and oxygen saturation 99% on 2 L by nasal cannula. GENERAL: The patient is awake and alert, does not appear distressed. Overweight. HEENT: Normocephalic, atraumatic. Pupils are equal, round, and reactive to light. Moist mucous membranes. NECK: Supple. No appreciable thyromegaly. No appreciable carotid bruits. CARDIOVASCULAR: S1, S2, regular rate and rhythm. No murmurs, rubs, or gallops. RESPIRATORY: Clear to auscultation bilaterally. No wheezes, rhonchi, or rales. EXTREMITIES: The skin is warm and dry. No clubbing, cyanosis, or edema. The posterior tibial and dorsalis pedis pulses are 2+ and symmetric. SKIN: No rashes or lesions. NEUROLOGIC: Memory/Attention: The patient is awake and alert, oriented to person, place, time, and situation. Cranial Nerves: Cranial nerve I - not tested. Cranial nerve II, III, IV, and - pupils are equal and round, reactive briskly to light (from 4 mm to 2 mm). Extraocular movements intact. No nystagmus. Cranial nerve V - sensation to light touch and pinprick is intact in the bilateral V1 through V3 distributions. Strength in the temporalis and masseter muscles are within normal limits. Cranial nerve VII - the face is symmetric as are all facial movements. Strength is within normal limits. Cranial nerve VIII - hearing is intact to finger rub bilaterally. Cranial nerve IX, X - the soft palate elevates equally and symmetrically. Cranial nerve XI - normal strength of the bilateral sternocleidomastoid and trapezius muscles. Cranial nerve XII - the tongue protrudes midline and moves symmetrically from [id number]. Strength: Bulk is normal. Strength is 5/5 in the bilateral deltoids, biceps, triceps, wrist flexors and extensors, finger flexors and extensors, intrinsic hand muscles, hip flexors, knee flexors and extensors, ankle dorsiflexion and plantar flexion, and intrinsic foot muscles. Tone is normal. DTRs: Deep tendon reflexes are 1+ and symmetric at the triceps, biceps, brachioradialis, and patellas. Deep tendon reflexes are absent and symmetric at the Achilles. Plantar responses are flexor bilaterally. Sensation: Sensation is intact to light touch and pinprick in both arms and both legs. Cerebellar: Lgovno-sgmb-qhatbl and heel-bermudez movements are intact without dysmetria or other impairment. Gait: Deferred. Speech: Spontaneous speech is normal without appreciable dysarthria or aphasia. Repetition is intact. Involuntary movements: None. Pronator Drift: None. LABORATORY DATA: The most recent basic metabolic panel is significant for chloride of 96, creatinine of 5.47, estimated GFR of 10, and BUN to creatinine ratio of 3. A liver function panel collected on September 27, 2018, revealed an elevated alkaline phosphatase of 159, albumin of 3.3, and globulin of 3.7. Cardiac enzymes are negative x1. B-natriuretic peptide 523.2. Total cholesterol 134, triglycerides 105, LDL cholesterol 79, HDL cholesterol 34. The CBC with differential and platelets reveals a white blood cell count of 5.22 with normal differential. The hemoglobin and hematocrit are 10.2 and 31.9, respectively. The platelet count is 210. A coagulation profile is within normal limits. Hepatitis B panel is pending. DIAGNOSTIC STUDIES: Electrocardiogram on 09/27/2018: Normal sinus rhythm at [address] of the brain without contrast on 09/27/2018: On my review, there is no evidence of recent large territorial ischemia, hemorrhage, mass, or mass effect. Prior lacunar infarcts are seen in the left frontal opercular region as well as the right putaminal and left lentiform nuclei. There is mild diffuse cerebral atrophy with compensatory dilatation of the ventricles, appropriate for the patient's age. The findings compatible with a [id number] chronic small vessel ischemic disease. Echocardiogram of 09/27/2018: Ejection fraction 55 plus percent. Calcified aortic valve. Trace mitral regurgitation and pulmonic insufficiency. Trace to mild tricuspid regurgitation. Bilateral carotid artery ultrasound with Doppler 09/27/2018: 1. There is no evidence of hemodynamically significant stenosis noted in the right internal carotid artery. There is evidence of moderate hemodynamically significant stenosis in the left bulb/bifurcation area. There is moderate atherosclerotic plaque noted in the left bulb/bifurcation area. 2. Plaque burden within the left internal carotid artery is consistent with a [id number] 50% to 69% stenosis with normal velocities. MRI of the brain without contrast on 09/27/2018: On my review, there is no evidence of recent large territorial ischemia, hemorrhage, mass, or mass effect. Chronic lacunar infarcts are seen in the left frontal opercular region as well as the bilateral putamen. There is mild diffuse cerebral atrophy with compensatory dilatation of the ventricles, appropriate for the patient's age. There are scattered T2/FLAIR hyperintense foci throughout the supratentorial white matter compatible with mild chronic small vessel ischemic disease. CT of the chest 09/27/2018: 1. Mild pulmonary edema. Moderate right pleural effusion and trace left pleural effusion with associated dependent subsegmental atelectasis of right greater than left lower lobes. 2. Scattered areas of bilateral pleural thickening with focal calcification consistent with pleural plaques. 3. Mediastinal lymphadenopathy as above, nonspecific and possibly reactive. 4. Coronary artery atherosclerotic calcification. ASSESSMENT AND PLAN: Mr. Myers is a 73-year-old left-hand dominant man with multiple vascular risk factors admitted to [facility] on September 27, 2018, with confusion, generalized weakness, and dysarthria in the setting of severe hypoglycemia. Mr. Myers' symptoms quickly improved following the administration of dextrose. At present, the patient's neurological examination is nonfocal. His laboratory data and other diagnostic studies have been reviewed and are documented above. In my opinion, the patient's symptoms as described in history of present illness were due to severe hypoglycemia. No further evaluation or treatment is recommended from a neurological standpoint. Mr. Myers may be discharged home. Thank you for this consultation. Please call again with any questions or concerns. TIME SPENT: 50 minutes. Dilcia Almeida MD [facility]/NIKOS /[id number]
--- NOTE | 2018-09-29 04:15 | Discharge Summary ---
FINAL DISCHARGE DIAGNOSES: 1. Metabolic encephalopathy secondary to hypoglycemia, no evidence of any stroke-like symptoms. 2. End-stage renal disease, on hemodialysis with pulmonary edema, improved. 3. Mediastinal lymphadenopathy with pleural nodule-will follow up with Pulmonary as an outpatient, in which he will be referred to CT Surgery for biopsy of the pleura as well as the lung nodules. 4. History of seizures. 5. Hypothyroidism. CONSULTANTS: We had Cardiology, Hematology, and Nephrology. PHYSICAL EXAMINATION: VITAL SIGNS: Temperature is 97.1, pulse 66, respiratory rate 18, blood pressure 141/63, pulse ox 99% on 2 L of nasal cannula chronically. LABORATORY FINDINGS: Show white count 5.2, hemoglobin 10.2, hematocrit 31.9, platelets of 210. Coagulation; PT 13, INR 1, PTT 34.8. Chemistry; sodium 133, potassium 4.5, chloride 96, bicarb 29, anion gap of 15, BUN is glucose is 107, calcium 9.1, and total bilirubin is 0.5. LFTs were normal. CK was 18. Troponin was negative. LDL 79, albumin 3.3. SEROLOGY: None. MICROBIOLOGY: None. IMAGING STUDIES: CT brain, no acute intracranial abnormality. Mild supratentorial chronic microvascular ischemic changes. Mild generalized cerebral volume loss. 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 Old right putamen and left lentiform nucleus lacunar infarcts. Chest x-ray shows small left and moderate right pleural effusion, unchanged relative to 09/16/2018. MRI of the brain shows no acute intracranial abnormalities. Mild supratentorial chronic microvascular ischemic changes. Mild generalized cerebral volume loss. 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 Old small bilateral putaminal lacunar infarct. CT chest shows mild pulmonary edema. Moderate right pleural effusion and trace left pleural effusion with associated dependent subsegmental atelectasis, right greater than left lower lobes. Scattered areas of bilateral pleural thickening with focal calcification consistent with pleural plaques. This could be seen . Mediastinal lymphadenopathy as above. Nonspecific and possibly reactive. Coronary artery atherosclerotic calcifications. Carotid ultrasound showed no significant hemodynamic right internal carotid artery. There is 50% to 69% stenosis in the left internal carotid artery, which could be followed up as an outpatient. HOSPITAL COURSE: This is a 73-year-old male with multiple comorbidities, who came into the ED after having an altered mental status state while at home. When EMS arrived, the patient was found to have a glucose level in the 20s. The patient reports that he used to be hyperglycemic in the past, currently not taking any medications. On arrival by EMS, the patient was given dextrose, D50, and the patient is doing much better after the dextrose was given. The patient was admitted for stroke, rule out TIA. Further imaging studies were performed and which Neurology was consulted. MRI of the brain found to be negative. CT brain negative. Carotid ultrasound was also found to be negative for any acute findings. The patient continued to be on aspirin and statin. The patient was cleared for discharge by Neurology. In relation to his dialysis, Nephrology was consulted and dialysis was performed accordingly. Pulmonary was consulted for further management and care. The patient had evidence of mediastinal lymphadenopathy and possible pleural nodule. At this time, I got Hematology/Oncology involved as well as well as Pulmonary to further assess this patient. After further discussion, it was felt that the patient will need to be followed up as an outpatient with Pulmonary with referrals to Oncology as well as CT surgery. Dr. Rinaldi of Pulmonary would like to have Dr. Mccoy perform a biopsy of the pleural space, also to rule out any other possible etiologies of malignancy including mesothelioma, which could play a role in this patient's underlying hypoglycemia. At this time, the patient was cleared for discharge by Hematology and Pulmonary after I spoke with them by phone and they will follow up accordingly as an outpatient. I had a long discussion with the patient and the at bedside about followup very closely in relation to mediastinal lymph nodes as well as pleural space lymph nodes and they verbalized to follow up very closely with Dr. Rinaldi and Oncology as an outpatient. They verbalized understanding and agrees to plan of care. On discharge, the patient was doing well, had no other complaints at this time, back to normal baseline. The patient was cleared to be discharged home. The patient was cleared by all consultants. On the day of discharge, vital signs were stable, labs reviewed and stable. The patient is seen and evaluated, examined thoroughly on the day of discharge. No other complaints. The patient verbalized understanding and agreed to plan of care. A followup appointment as an outpatient with primary care physician in 1 week, Hematology and Pulmonary in 1 to 2 weeks' time for referrals to Dr. Mccoy, CT Surgery. MEDICATIONS: See med reconciliation form. DISPOSITION: Home. CONDITION: Stable. DIET: Heart healthy. In the event of any worsening symptoms, the patient was advised to come back to the ED for further evaluation. Discharge summary took greater than 35 minutes. MD KATHLEEN Mcpherson/NIKOS /[id number]
== END 2018-09-28 17:28 | disposition home or self-care (01) ==
LOC: ER 09:07 → ERHOLD 11:06 → IMCU 12:05
PROVIDERS: ADMIT Internal Medicine; ATTEND Internal Medicine
DX: G93.41 Metabolic encephalopathy (principal); E16.2 Hypoglycemia, unspecified; N18.6 End stage renal disease; Z99.2 Dependence on renal dialysis; R59.0 Localized enlarged lymph nodes; G40.909 Epilepsy, unspecified, not intractable, without status epilepticus; E03.9 Hypothyroidism, unspecified; R47.1 Dysarthria and anarthria; Z77.090 Contact with and (suspected) exposure to asbestos; J91.8 Pleural effusion in other conditions classified elsewhere; Z86.73 Personal history of transient ischemic attack (TIA), and cerebral infarction without residual deficits; I25.10 Atherosclerotic heart disease of native coronary artery without angina pectoris; I13.2 Hypertensive heart and chronic kidney disease with heart failure and with stage 5 chronic kidney disease, or end stage renal disease; I50.9 Heart failure, unspecified
CPT/HCPCS: 36415 ×2; 70450; 70551; 71045; 71260; 80048; 80053; 80061; 82550; 82553; 82948 ×2; 83880; 84484; 85025 ×2; 85610; 85730; 86704; 86706; 87340; 90935; 93005; 93306; 93880; 97116; 97162; 99284; G0378 ×2; J1940; J7030; Q9967; S0164; 90962

== ENCOUNTER 2021-03-09 14:22 | Emergency (ER) | payer MEDICARE, OTHER ==
[~2021-03-09] VITALS: Ht 172.7 cm; Wt 77.1 kg
[2021-03-09] MEDS ORDERED: HYDROCODON-ACE1 EA11 PO (16:54)
== END 2021-03-09 17:11 | disposition home or self-care (01) ==
LOC: FSED 14:41
DX: S80.01XA Contusion of right knee, initial encounter (principal); W01.0XXA Fall on same level from slipping, tripping and stumbling without subsequent striking against object, initial encounter; Y93.01 Activity, walking, marching and hiking; Y92.008 Other place in unspecified non-institutional (private) residence as the place of occurrence of the external cause; I12.0 Hypertensive chronic kidney disease with stage 5 chronic kidney disease or end stage renal disease; E11.22 Type 2 diabetes mellitus with diabetic chronic kidney disease; N18.6 End stage renal disease; Z99.2 Dependence on renal dialysis; Z99.81 Dependence on supplemental oxygen; E03.9 Hypothyroidism, unspecified
CPT/HCPCS: 99283